=== PATIENT | female | born 1940 | race Caucasian/White ===

== ENCOUNTER 2018-03-20 11:04 | Outpatient (CLI) | payer MEDICARE, BC ==
[2018-03-20] MEDS ORDERED: ISOVUE-370 76%-LOCM 1 ML ONE (12:13)
== END 2018-03-20 11:05 | disposition home or self-care (01) ==
LOC: BICCT 11:04
PROVIDERS: ATTEND Internal Medicine Gastroenterology
DX: K59.00 Constipation, unspecified (principal); K62.89 Other specified diseases of anus and rectum; K57.92 Diverticulitis of intestine, part unspecified, without perforation or abscess without bleeding; K57.30 Diverticulosis of large intestine without perforation or abscess without bleeding
CPT/HCPCS: 74177; 82565

== ENCOUNTER 2018-06-12 14:28 | Emergency (ER) | payer MEDICARE, BC ==
[~2018-06-12 14:28] MED LIST: ISOVUE-370 76%-LOCM 1 ML ONE; Iopamidol 370 76% 50 ML VIAL FS ONE
[2018-06-12 15:40] LABS: #Basophils 0.1 thou/uL (0.0-0.2); #Eosinphils 0.2 thou/uL (0.0-0.7); #Lymphocytes 1.8 thou/uL (1.20-3.40); #Monocytes 0.5 thou/uL (0.11-0.59); #Neutrophils 6.2 thou/uL (1.40-6.50); %Basophils 0.7 % (0.0-1.0); %Eosinophils 1.9 % (0.0-10.0); %Lymphocytes 20.2 % (21.0-51.0); %Monocytes 5.9 % (0.0-10.0); %Neutrophils 71.3 % (42.0-75.0); Hemoglobin 12.5 g/dL (12.0-16.0); Mean Corpuscular HGB CONC 32.5 g/dL (32.0-36.0); Mean Corpuscular Hemoglobin 29.3 pg (27.0-31.0); Mean Corpuscular Volume 90.1 fL (78.0-98.0); Mean Platelet Volume 6.4 fL (7.4-10.4); Platelet Count 367 thou/uL (130-400); RBC Distribution Width 11.4 % (11.5-14.5); Red Blood Cell (RBC) Count 4.25 mill/uL (4.20-5.40); White Blood Cell (WBC) Count 8.7 thou/uL (4.8-10.8)
[2018-06-12 16:00] LABS: ALT (SGPT) 11 U/L (8-55); AST (SGOT) 15 U/L (5-34); Albumin 4.1 g/dL (3.4-4.8); Alkaline Phosphatase 79 U/L (40-150); Anion Gap 12 mmol/L (10-20); BUN (Urea Nitrogen) 6 mg/dL (9.8-20.1); Bilirubin, Total 0.7 mg/dL (0.2-1.2); Calc. Creatinine Clearance 0 mL/min (70-130); Calcium 9.3 mg/dL (7.8-10.44); Carbon Dioxide 31 mmol/L (23-31); Chloride 92 mmol/L (98-107); Estimated GFR-MDRD 71; Globulin 3.2 g/dL (2.4-3.5); Glucose 104 mg/dL (83-110); Lipase 27 U/L (8-78); Potassium 3.7 mmol/L (3.5-5.1); Protein, Total 7.3 g/dL (6.0-8.3); Sodium 131 mmol/L (136-145)
[2018-06-12 16:11] LABS: Bilirubin Negative (Negative); Blood, Urine Negative (Negative); Clarity CLEAR (Clear); Glucose, Urine (Dipstick) Negative (Negative); Leukocyte Negative (Negative); Nitrite Negative (Negative); Protein, Urine (Dipstick) Negative (Neg-Trace); Specific Gravity, Urine 1.008 (1.002-1.036); Urobilinogen 0.2 mg/dL (0.2-1.0)
--- NOTE | 2018-06-12 18:10 | CT ---
CT ABDOMEN AND PELVIS WITH ORAL AND IV CONTRAST: 06/12/18 HISTORY: Abdominal pain. FINDINGS: Comparison is made with exam of 05/06/14. The lung bases are clear. The patient is post cholecystectomy, appendectomy and hysterectomy. The alicja g bases are clear. The liver, spleen, pancreas, and adrenal glands are normal. Small cysts in the ki dneys are again seen. No free air, free fluid or lymphadenopathy is seen in the abdomen or pelvis. Postop changes in the si gmoid colon are redemonstrated. Mild diverticular disease in the sigmoid colon is again seen without evidence of diverticulitis. No abnormally loculated fluid collections are noted to suggest abscess fo rmation. There are vascular calcifications without evidence of aneurysmal dilatation of the abdominal aorta. T here are degenerative changes in the spine. A small hiatal hernia is present. IMPRESSION: Small hiatal hernia. Sigmoid diverticulosis without evidence of diverticulitis or abscess formation. POS: [facility]
== END 2018-06-12 20:06 | disposition home or self-care (01) ==
LOC: ERS 14:28
DX: K57.30 Diverticulosis of large intestine without perforation or abscess without bleeding (principal); E11.9 Type 2 diabetes mellitus without complications; I10 Essential (primary) hypertension
CPT/HCPCS: 74177; 80053; 81003; 83690; 85025

== ENCOUNTER 2018-06-24 14:36 | Emergency (ER) | payer MEDICARE, BC ==
[~2018-06-24 14:36] MED LIST changes: -Iopamidol 370 76% 50 ML VIAL FS ONE
[2018-06-24 15:17] LABS: #Basophils 0.1 thou/uL (0.0-0.2); #Eosinphils 0.2 thou/uL (0.0-0.7); #Lymphocytes 1.8 thou/uL (1.20-3.40); #Monocytes 0.3 thou/uL (0.11-0.59); #Neutrophils 5.1 thou/uL (1.40-6.50); %Basophils 1.2 % (0.0-1.0); %Eosinophils 2.1 % (0.0-10.0); %Monocytes 4.5 % (0.0-10.0); %Neutrophils 68.2 % (42.0-75.0); Hemoglobin 12.6 g/dL (12.0-16.0); Mean Corpuscular HGB CONC 33.9 g/dL (32.0-36.0); Mean Corpuscular Hemoglobin 30.6 pg (27.0-31.0); Mean Corpuscular Volume 90.3 fL (78.0-98.0); Mean Platelet Volume 7.1 fL (7.4-10.4); Platelet Count 382 thou/uL (130-400); RBC Distribution Width 11.6 % (11.5-14.5); Red Blood Cell (RBC) Count 4.12 mill/uL (4.20-5.40); White Blood Cell (WBC) Count 7.5 thou/uL (4.8-10.8)
[2018-06-24 15:40] LABS: ALT (SGPT) 20 U/L (8-55); AST (SGOT) 27 U/L (5-34); Alkaline Phosphatase 69 U/L (40-150); Anion Gap 14 mmol/L (10-20); BUN (Urea Nitrogen) 6 mg/dL (9.8-20.1); Bilirubin, Total 0.6 mg/dL (0.2-1.2); Calc. Creatinine Clearance 0 mL/min (70-130); Calcium 9.6 mg/dL (7.8-10.44); Carbon Dioxide 27 mmol/L (23-31); Chloride 93 mmol/L (98-107); Estimated GFR-MDRD 69; Globulin 3.3 g/dL (2.4-3.5); Glucose 123 mg/dL (83-110); Lipase 28 U/L (8-78); Potassium 4.1 mmol/L (3.5-5.1); Protein, Total 7.3 g/dL (6.0-8.3); Sodium 130 mmol/L (136-145)
[2018-06-24 15:44] LABS: CKMB 1.6 ng/mL (0-6.6); Troponin I Less than 0.010 ng/mL (< 0.028)
[2018-06-24 15:47] LABS: Bilirubin Negative (Negative); Blood, Urine Negative (Negative); Clarity CLEAR (Clear); Glucose, Urine (Dipstick) Negative (Negative); Leukocyte Negative (Negative); Nitrite Negative (Negative); Protein, Urine (Dipstick) Negative (Neg-Trace); Specific Gravity, Urine 1.007 (1.002-1.036); Urobilinogen 0.2 mg/dL (0.2-1.0); pH, Urine 7.5 (5.0-9.0)
--- NOTE | 2018-06-24 16:48 | CT ---
CT ABDOMEN AND PELVIS WITH CONTRAST: Date: 06/24/18 Multiple axial tomograms obtained through the abdomen and pelvis with IV enhancement. INDICATION: Abdominal pain. History of prior diverticulitis with resection. Comparison made to CT abdomen and pelvis dated 06/12/18. That exam revealed no evidence of diverticul itis or acute process. FINDINGS: Lung bases are clear. Liver, spleen, and pancreas are unremarkable. Post cholecystectomy change. Adrenal glands and kidneys are unremarkable. Small bowel loops normal caliber. Aorta normal caliber. Diverticulosis of left colon and sigmoid. Evidence of prior colon resection with anastomosis with rad iopaque suture in the upper sigmoid region. IMPRESSION: Diverticulosis of the left colon. No CT evidence of diverticulitis. No significant interval change. POS: [facility]
== END 2018-06-24 17:31 | disposition home or self-care (01) ==
LOC: ERS 14:36
DX: R10.32 Left lower quadrant pain (principal); R10.12 Left upper quadrant pain; E11.9 Type 2 diabetes mellitus without complications; I10 Essential (primary) hypertension
CPT/HCPCS: 74177; 80053; 81003; 82553; 83690; 84484; 85025; 93005

== ENCOUNTER 2018-08-25 19:34 | Observation (INO) | payer MEDICARE, BC ==
[2018-08-25 19:56] LABS: #Basophils 0.1 thou/uL (0.0-0.2); #Eosinphils 0.1 thou/uL (0.0-0.7); #Lymphocytes 2.6 thou/uL (1.20-3.40); #Monocytes 0.6 thou/uL (0.11-0.59); #Neutrophils 5.2 thou/uL (1.40-6.50); %Basophils 1.2 % (0.0-1.0); %Eosinophils 1.7 % (0.0-10.0); %Lymphocytes 30.3 % (21.0-51.0); %Monocytes 6.4 % (0.0-10.0); %Neutrophils 60.4 % (42.0-75.0); Hemoglobin 12.7 g/dL (12.0-16.0); Mean Corpuscular HGB CONC 33.7 g/dL (32.0-36.0); Mean Corpuscular Hemoglobin 30.6 pg (27.0-31.0); Mean Corpuscular Volume 90.6 fL (78.0-98.0); Mean Platelet Volume 7.1 fL (7.4-10.4); Platelet Count 362 thou/uL (130-400); RBC Distribution Width 11.5 % (11.5-14.5); Red Blood Cell (RBC) Count 4.17 mill/uL (4.20-5.40); White Blood Cell (WBC) Count 8.7 thou/uL (4.8-10.8)
[2018-08-25 20:17] LABS: ALT (SGPT) 12 U/L (8-55); AST (SGOT) 16 U/L (5-34); Albumin 4.1 g/dL (3.4-4.8); Alkaline Phosphatase 83 U/L (40-150); Anion Gap 13 mmol/L (10-20); BUN (Urea Nitrogen) 9 mg/dL (9.8-20.1); Bilirubin, Total 0.6 mg/dL (0.2-1.2); CK (CPK) 60 U/L (29-168); Calc. Creatinine Clearance 0 mL/min (70-130); Calcium 9.6 mg/dL (7.8-10.44); Carbon Dioxide 28 mmol/L (23-31); Chloride 94 mmol/L (98-107); Estimated GFR-MDRD 60; Globulin 3.3 g/dL (2.4-3.5); Glucose 173 mg/dL (83-110); Potassium 3.3 mmol/L (3.5-5.1); Protein, Total 7.4 g/dL (6.0-8.3); Sodium 132 mmol/L (136-145)
--- NOTE | 2018-08-25 21:15 | RAD ---
UPRIGHT PORTABLE CHEST ONE VIEW: 08/25/18 HISTORY: 78-year-old female with history of chest pain. Concern for stroke. Monitor leads overlie the chest. Heart size is normal. The lungs are clear. IMPRESSION: No acute intrathoracic disease. Atherosclerosis of the aorta. Stable from prior study. POS: [facility]
--- NOTE | 2018-08-26 00:28 | PDOC.FPRHP ---
- History of Present Illness Chief Complaint: headache History of Present Illness: Mrs. Sanchez presents to the ED with visual disturbances and word finding difficulty She reports at around 1800 this evening she began having what she describes as pinwheels in her vision and shortly following difficulty finding the words to say. These symptoms resolved after approximately 30 mins. She denies any focal weakness, syncope, palpitations, fever/chills, change in bowel habits, or chest pain. She has a headache on and off for approximately 3 months. she reports urinary incontinence since her abdominal surgery for diverticulitis. ED Course: mag + K CT brain, CBC, CMP, trop, CK, CXR - Allergies/Adverse Reactions Allergies Allergy/AdvReac Type Severity Reaction Status Date / Time No Known Drug Allergies Allergy Verified 05/27/14 23:08 tobacco smoke Allergy Uncoded 05/24/14 12:10 - Home Medications Medication Instructions Recorded Confirmed Type Aspirin [Chrissy Chewable Aspirin] 1 tab PO DAILY 04/10/14 05/24/14 History Calcium Carb, Citrate/Vit D3 1,200 mg PO DAILY 04/10/14 05/24/14 History [Calcium + D3 ER Tablet] Desvenlafaxine Succinate [Pristiq 50 mg PO ASDIR 04/10/14 05/24/14 History ER] Docusate [Colace] 100 mg PO BID 04/10/14 05/24/14 History Ginkgo Biloba 120 mg PO DAILY 04/10/14 05/24/14 History Gluc Castellon/Chondro Castellon A/Vit C/Mn 2 cap PO DAILY 04/10/14 05/24/14 History [Glucosamine 1,500 Complex Capsule] Multivitamin With Minerals 1 tablet PO DAILY 04/10/14 05/24/14 History [Multiple Vitamin] Valsartan/Hydrochlorothiazide 0.5 tablet PO DAILY 04/10/14 05/24/14 History [Diovan HCT] metFORMIN HCl [Metformin HCl ER] 2 tab PO BID-WM 04/10/14 05/24/14 History Levothyroxine Sodium 120 mg PO DAILY 05/24/14 05/24/14 History Doxycycline Hyclate 100 mg PO BID 05/30/14 05/30/14 History HYDROcodone Bit/APAP 7.5/325 1 - 2 tab PO Q4HR PRN 05/30/14 05/30/14 History [[place] 7.5/325] - History PMHx:DMII, HLD, HTN PSHx: abdominal sgx 2/2 hernia/diverticulosis FHx: NC Social: No TAD - Review of Systems General: denies: fever/chills, weight/appetite/sleep changes Eyes: reports: eye pain, vision changes ENT: denies: nasal congestion Respiratory: denies: cough, shortness of breath Cardiovascular: denies: chest pain, palpitation, edema Gastrointestinal: reports: constipation. denies: nausea, vomiting, diarrhea, abdominal pain Genitourinary: reports: incontinence Skin: denies: rashes, lesions Musculoskeletal: denies: pain, tenderness Neurological: denies: numbness, syncope Psychological: reports: depression - Vital signs BP: 143/76 HR: 70 RR: 16 Tmax: 97.5 Pox: 98% on RA Wt: 79.38kg - Physical Exam Constitutional: NAD, awake, alert and oriented HEENT: normocephalic and atraumatic, EOMI, grossly normal vision, grossly normal hearing, MMM Neck: supple, trachea midline Chest: no-tender to palpation Heart: RRR, normal S1/S2, no murmurs/rubs/gallops Lungs: CTAB, no respiratory distress, good air movement Abdomen: soft, non-tender Musculoskeletal: normal structure, normal tone Neurological: no focal deficit, CN II-XII intact, normal sensation Skin: no rash/lesions Heme/Lymphatic: no unusual bruising or bleeding, no purpura Psychiatric: normal mood and affect FMR H&P: Results - Labs Result Diagrams: 08/25/18 19:47 08/25/18 19:47 Lab results: WBC 8.7 thou/uL (4.8-10.8) 08/25/18 19:47 Hgb 12.7 g/dL (12.0-16.0) 08/25/18 19:47 Hct 37.8 % (36.0-47.0) 08/25/18 19:47 MCV 90.6 fL (78.0-98.0) 08/25/18 19:47 Plt Count 362 thou/uL (130-400) 08/25/18 19:47 Neutrophils % 60.4 % (42.0-75.0) 08/25/18 19:47 Sodium 132 mmol/L (136-145) L 08/25/18 19:47 Potassium 3.3 mmol/L (3.5-5.1) L 08/25/18 19:47 Chloride 94 mmol/L (98-107) L 08/25/18 19:47 Carbon Dioxide 28 mmol/L (23-31) 08/25/18 19:47 BUN 9 mg/dL (9.8-20.1) L 08/25/18 19:47 Creatinine 0.90 mg/dL (0.6-1.1) 08/25/18 19:47 Glucose 173 mg/dL (83-110) H 08/25/18 19:47 Calcium 9.6 mg/dL (7.8-10.44) 08/25/18 19:47 Total Bilirubin 0.6 mg/dL (0.2-1.2) 08/25/18 19:47 AST 16 U/L (5-34) 08/25/18 19:47 ALT 12 U/L (8-55) 08/25/18 19:47 Alkaline Phosphatase 83 U/L (40-150) 08/25/18 19:47 Creatine Kinase 60 U/L (29-168) 08/25/18 19:47 Serum Total Protein 7.4 g/dL (6.0-8.3) 08/25/18 19:47 Albumin 4.1 g/dL (3.4-4.8) 08/25/18 19:47 FMR H&P: A/P - Problem List (1) TIA (transient ischemic attack) Current Visit: Yes Status: Acute Code(s): G45.9 - TRANSIENT CEREBRAL ISCHEMIC ATTACK, UNSPECIFIED (2) DMII (diabetes mellitus, type 2) Current Visit: Yes Status: Acute (3) HTN (hypertension) Current Visit: Yes Status: Acute Code(s): I10 - ESSENTIAL (PRIMARY) HYPERTENSION (4) HLD (hyperlipidemia) Current Visit: Yes Status: Acute Code(s): E78.5 - HYPERLIPIDEMIA, UNSPECIFIED - Plan TIA - symptoms resolved, CT head negative - EKG wnl, MRI and echo ordered - admit to stroke, [facility] per routine - vital signs q4hr - begin asa 81mg - temporal tenderness, ESR pending HTN - permissive HTN - hold home medications DMII - continue home meds - Mild SSI HLD - continue home meds Hypokalemia - repleted in ED - repeat CMP in AM Hypomagnesemia - repleted in ED - repeat CMP in AM Code: full ppx: rachealx Disposition/LOS: admit to stroke for TIA work up FMR H&P: Upper Level - Pertinent history I agree with Shake Cutter's History. Aphasia, vision changes resolved and lasted for 45 mins. Has been having R temporal pain for several weeks and takes ibuprofen. Also states she is incontinent from surgical complication after her sigmoidectomy. - Pertinent findings NEG CT brain. Of note, Urgent HTN range upon presentation to ED. Neurology exam. CN intact, no focal deficits. strength and sensation preserved throughout - Plan Date/Time: 08/26/18 0027 I, Earle Nicholson, have evaluated this patient and agree with findings/plan as outlined by internet security specialist resident. Pertinent changes/additions are listed here. 1. TIA r/o - CT negative. MRI/ECHO tomorrow. Consider CTA carotids also. Episode possibly 2/2 TIA vs Hypertensive Encephalopathy. Will start ASA, already on statin. 2. HTN - Has improved to normal range. Continue to monitor 3. HLD - continue statin 4. Diverticulitis s/p sigmoidectomy 5. Urinary Incontinence 6. Hypokalemia/magnesemia - will replete and recheck 7. Hyponatramia - Will replete with NS and recheck.
[2018-08-26] MEDS ORDERED: Potassium Chloride 40 MEQ in Sodium Chloride 0.9% 250 ML 250 ML IVPB SCH (01:30)
[2018-08-26] MEDS ORDERED: HumaLOG 300 UNITS/3 ML VIAL SC PRN ×2 (01:53)
[2018-08-26] MEDS ORDERED: Acetaminophen 325 MG TAB PO PRN (01:53)
[2018-08-26] MEDS ORDERED: Dextrose 5% in Water 1,000 ML IV PRN (01:53)
[2018-08-26] MEDS ORDERED: hydrALAZINE 20 MG/ML VIAL SLOW IVP PRN (01:53)
[2018-08-26] MEDS ORDERED: Dextrose 50% Abboject 50 ML SYRINGE SLOW IVP PRN (01:53)
[2018-08-26] MEDS ORDERED: Aspirin 81 mg Enteric Coated Tablet PO SCH (02:00)
[2018-08-26 03:41] VITALS: BMI 27.1
[2018-08-26 06:21] LABS: ALT (SGPT) 8 U/L (8-55); AST (SGOT) 14 U/L (5-34); Albumin 3.5 g/dL (3.4-4.8); Alkaline Phosphatase 69 U/L (40-150); Anion Gap 10 mmol/L (10-20); BUN (Urea Nitrogen) 8 mg/dL (9.8-20.1); Bilirubin, Total 0.7 mg/dL (0.2-1.2); Calc. Creatinine Clearance 77 mL/min (70-130); Calcium 9.1 mg/dL (7.8-10.44); Carbon Dioxide 29 mmol/L (23-31); Chloride 98 mmol/L (98-107); Estimated GFR-MDRD 78; Globulin 2.9 g/dL (2.4-3.5); Glucose 105 mg/dL (83-110); Protein, Total 6.4 g/dL (6.0-8.3); Sodium 133 mmol/L (136-145)
--- NOTE | 2018-08-26 08:37 | CT ---
PRELIMINARY REPORT/[facility]/EMERGENTY AFTER-HOURS PROCEDURE CT Head Without Contrast EXAM DATE/TIME: 08/26/2018 12:10 AM CLINICAL HISTORY: 78 years old, female; Pain; Headache; Headache not specified; Patient HX: 1 y/o f presents to ed C/O XIONG and vision changes. PT states that she had been working and just sat down when she noticed she was seeing "pinwheels" that began to worsen such that she was unable to see her crossword puzzle well. A ssociated with a unilateral XIONG behind her eye. XIONG worsened as vision worsened. She then went into the kitchen and sat near her . At that time, she was unable to se e anything and was not able to answer her 's questions. She states no loss of strength, sensat ion, or coordination in her extremities. She has had similar XIONG and vision changes in the past. Howev er she notes that the duration is normally much shorter than today and that she has never had difficu lty speaking previously. TECHNIQUE: Axial computed tomography images of the head/brain without contrast. COMPARISON: No relevant prior studies available. FINDINGS: Brain: There is minimal bilateral periventricular and subcortical white matter hypodensity which is n onspecific and can be seen in the setting of chronic microvascular angiopathy. Nuno-white matter diff erentiation is within normal limits. No hemorrhage. Ventricles: No ventriculomegaly. Bones/joints: No acute fracture. Sinuses: Well aerated. Mastoid air cells: Well aerated. Soft tissues: Unremarkable. Vasculature: There is atherosclerotic disease of the internal carotid and vertebral arteries bilatera lly. IMPRESSION: 1. No acute hemorrhage, focal mass or large territory infarction. 2. Other findings as above. Thank you for allowing us to participate in the care of your patient. Dictated and Authenticated by: Guillaume Jansen MD 08/26/2018 12:32 AM Central Time ([place] & [place]) FINAL REPORT HEAD CT WITHOUT CONTRAST: DATE: 08/26/2018. COMPARISON: None. HISTORY: Vision changes, headaches. FINDINGS: I agree with the preliminary [facility] report. The imaged paranasal sinuses/mastoid air cells are well aerated. No displaced calvarial fracture. No intracranial hemorrhage, midline shift, or mass effect. IMPRESSION: No acute findings. POS: [facility]
[2018-08-26] MEDS ORDERED: Enoxaparin Sodium 40 MG/0.4 ML SYRINGE SC SCH (09:00)
--- NOTE | 2018-08-26 10:10 | PRG ---
DATE OF SERVICE: 08/26/2018 SUBJECTIVE: I have discussed the case with Dr. Tony Becker, and I have reviewed his history and physical. I agree with his assessment and plan. Briefly, Ms. Sanchez is a very pleasant 78-year-old white female, looking younger than her stated age. Yesterday, while wrapping cookie, she had approximately a 30-minute episode of word-finding difficulty that was preceded by "spots before my eyes." She, at all times, was alert, oriented, and could move all extremities. She did not experience headache or chest pain. She did not experience syncope or palpitations. By the time she arrived at the ER, her symptoms had largely resolved. This morning, Ms. Sanchez is awake, alert, in no distress. She demonstrates no focal deficits. OBJECTIVE: VITAL SIGNS: Her blood pressure is 144/63. She is afebrile. Her pulse rate is 66, respirations are 16, and her room air oxygen saturation is 95. EAR, NOSE, AND THROAT: No signs of erythema or exudate. NECK: Supple. CARDIAC: Heart rhythm is regular with no gallop or murmur noted. LUNGS: Clear without rales or wheezes. No distress. ABDOMEN: Flat and soft. No guarding, rebound, or rigidity. EXTREMITIES: No edema. NEUROLOGIC: She demonstrates no focal deficits. She moves all extremities well. She has no problems with her balance. LABORATORY DATA: CBC; white count is 8700, hemoglobin 12.7, hematocrit 37.8 with an MCV of 90.6. Her sedimentation rate is 19. Initial chemistry; sodium 132, potassium 3.3, chloride 94, bicarbonate 28, BUN 9, creatinine 0.9, glucose 173. GFR 60, repeat was 80. Brain CT shows no acute hemorrhage or other acute changes. ASSESSMENT: 1. Transient ischemic attack. 2. Type 2 diabetes. 3. Hypertension. DISPOSITION: The patient has already had a brain CT. I would suggest a CTA for better look at the vasculature as well as an MRI and echo. Job ID: [id number]
--- NOTE | 2018-08-26 10:31 | MRI ---
MRI BRAIN WITHOUT CONTRAST: HISTORY: Transient ischemic attack, vision changes. COMPARISON: CT brain same day. FINDINGS: On the diffusion weighted imaging sequence, there are no abnormal areas of diffusion restriction to i ndicate an acute infarction. This is confirmed on the ADC map. On the susceptibility weighted imaging sequence, here are no abnormal areas of hemorrhage. The flow voids of the [place] are maintained. Minimal microvascular ischemic changes. No h ydrocephalus. No midline shift or mass effect. The globes are normal. IMPRESSION: No acute intracranial abnormality. No acute hemorrhage or infarct. POS: [facility]
[2018-08-26] MEDS ORDERED: Iopamidol 370 76% 100 ML VIAL ONE (10:43)
--- NOTE | 2018-08-26 14:00 | CT ---
CT ANGIOGRAM OF THE HEAD WITH CONTRAST CT ANGIOGRAM OF THE NECK WITH CONTRAST: HISTORY: Transient ischemic attack. COMPARISON: Brain MRI same day. FINDINGS: The lung apices are clear. Transverse aorta is nonaneurysmal. There is moderate degenerative change of the lower cervical spine at C5-6 and C6-7. No cervical ralf opathy. Thyroid is unremarkable. Paraspinal musculature is normal. VESSELS: Vertebral arteries are tortuous indicating longstanding hypertension. Right vertebral artery is jimbo nant. Both vertebral arteries are patent. The common carotid artery origins are patent. No hemodyn amically significant stenosis using NASCET criteria of the internal carotid arteries. The basilar artery is patent. The [place] is patent. No aneurysmal formation, thrombosis, or stenosis. There are prominent bilateral origins of the ophthalmic arteries and much less bilatera l symmetric terminal ICA aneurysms. No abnormal intensity mass. IMPRESSION: 1. No hemodynamically significant stenosis of internal carotid arteries per NASCET criteria. 2. No significant intracranial [place] thrombosis, stenosis, nor aneurysm formation. POS: [facility]
[2018-08-26 15:44] VITALS: BP 147/67; TEMP 97.5
[2018-08-27] MEDS ORDERED: Aspirin 81 mg Enteric Coated Tablet PO SCH (09:00)
--- NOTE | 2018-08-28 07:47 | DIS ---
DATE OF ADMISSION: 08/26/2018 DATE OF DISCHARGE: 08/26/2018 ADMITTING ATTENDING: Sander Steven MD DISCHARGE ATTENDING: Sander Steven MD RESIDENT: Dwayne Bianchi DO CONSULTS: None. PROCEDURES: 1. Head CT without contrast shows no acute intracranial findings including hemorrhage, midline shift or mass effect. 2. Portable chest x-ray showing no acute intrathoracic disease, atherosclerosis of aorta, stable from previous study. 3. MRI of the brain shows no acute intracranial abnormality, no hemorrhage or infarct. 4. CT angiogram of the head and neck shows no abnormal intense mass, no hemodynamically significant stenosis of the internal carotid arteries, no significant [QAMARKER] thrombosis, stenosis or aneurysm formation. PRIMARY DIAGNOSIS: Transient ischemic attack. SECONDARY DIAGNOSES: 1. Type 2 diabetes. 2. Hyperlipidemia. 3. Hypertension. DISCHARGE MEDICATIONS: 1. Alendronate 5 mg p.o. daily. 2. Aspirin 81 mg p.o. daily. 3. Calcium carbonate 1200 mg p.o. daily. 4. Pristiq 50 mg as directed. 5. Glucosamine 2 capsules p.o. daily. 6. Levothyroxine 75 mcg p.o. daily. 7. Metformin 1000 mg p.o. b.i.d. 8. Multivitamin 1 tablet p.o. b.i.d. 9. Pravastatin 40 mg p.o. at bedtime. 10. Diovan 80/12.5 half a tablet p.o. daily. DISCONTINUED MEDICATIONS: None. BRIEF HISTORY OF PRESENT ILLNESS/HOSPITAL COURSE: This is an 78-year-old female with past medical history as above, who presented to the ER with seeing pinwheels and word finding difficulty. States that she has been seeing pinwheels in the past, but this is the first time she has had trouble finding the words. The patient was admitted for stroke to rule out and underwent the above studies. The patient was finally stable during her stay. Workup for stroke was negative. DISPOSITION: Stable. DISCHARGE INSTRUCTIONS: 1. Location: Home. 2. Diet: Diabetic. 3. Activity: As tolerated. 4. Followup: Follow up with PCP in 1 to 2 weeks and in 14 days. Job ID: [id number]
== END 2018-08-26 16:48 | disposition home or self-care (01) ==
LOC: ERS 19:34 → 2SW 08-26 00:25
PROVIDERS: ADMIT Student in an Organized Health Care Education/Training Program; ATTEND Student in an Organized Health Care Education/Training Program
DX: G45.9 Transient cerebral ischemic attack, unspecified (principal); I10 Essential (primary) hypertension; E78.5 Hyperlipidemia, unspecified; E11.9 Type 2 diabetes mellitus without complications; Z79.82 Long term (current) use of aspirin; Z79.84 Long term (current) use of oral hypoglycemic drugs; Z98.890 Other specified postprocedural states; Z79.899 Other long term (current) drug therapy
CPT/HCPCS: 70450; 70496; 70498; 70551; 71045; 80053 ×2; 82550; 82962 ×2; 84484; 85025; 85652; 93005; 93306; 96365; 96366; 96374; 96375; 99285; G0378 ×2; 36415; 36416; J1650; J3475; J3480; J7050

== ENCOUNTER 2019-04-14 11:47 | Inpatient (IN) | payer MEDICARE, BC ==
--- NOTE | 2019-04-14 12:25 | RAD ---
RADIOGRAPH CHEST 1 VIEW: DATE: 04/14/19 HISTORY: 78-year-old female with chest pain. FINDINGS: The thoracic aorta is tortuous and ectatic. There is no evidence of air space density, pneumothorax, or pulmonary edema. The lateral costophrenic angles are sharp. There is no cardiomegaly. No interva l change since 08/25/18. IMPRESSION: 1. No acute pulmonary findings. 2. Ectasia of thoracic aorta. chris [] POS: [facility]
[2019-04-14 12:26] LABS: #Basophils 0.1 thou/uL (0.0-0.2); #Eosinphils 0.2 thou/uL (0.0-0.7); #Monocytes 0.3 thou/uL (0.11-0.59); #Neutrophils 5.3 thou/uL (1.40-6.50); %Basophils 1.1 % (0.0-1.0); %Lymphocytes 25.2 % (21.0-51.0); %Monocytes 4.3 % (0.0-10.0); %Neutrophils 67.4 % (42.0-75.0); Hemoglobin 12.1 g/dL (12.0-16.0); Mean Corpuscular HGB CONC 33.8 g/dL (32.0-36.0); Mean Corpuscular Hemoglobin 29.3 pg (27.0-31.0); Mean Corpuscular Volume 86.8 fL (78.0-98.0); Mean Platelet Volume 7.4 fL (7.4-10.4); Platelet Count 337 thou/uL (130-400); RBC Distribution Width 11.6 % (11.5-14.5); Red Blood Cell (RBC) Count 4.14 mill/uL (4.20-5.40); White Blood Cell (WBC) Count 7.9 thou/uL (4.8-10.8)
[2019-04-14 12:54] LABS: ALT (SGPT) 8 U/L (8-55); AST (SGOT) 15 U/L (5-34); Alkaline Phosphatase 92 U/L (40-150); Anion Gap 16 mmol/L (10-20); BUN (Urea Nitrogen) 8 mg/dL (9.8-20.1); Bilirubin, Total 0.6 mg/dL (0.2-1.2); Calc. Creatinine Clearance 0 mL/min (70-130); Calcium 9.6 mg/dL (7.8-10.44); Carbon Dioxide 23 mmol/L (23-31); Chloride 94 mmol/L (98-107); Estimated GFR-MDRD 64; Globulin 2.8 g/dL (2.4-3.5); Glucose 170 mg/dL (83-110); Protein, Total 6.8 g/dL (6.0-8.3); Sodium 129 mmol/L (136-145)
--- NOTE | 2019-04-14 13:30 | CT ---
CT ABDOMEN AND PELVIS WITH IV CONTRAST: HISTORY: Abdominal pain COMPARISON: 06/24/2018 FINDINGS: There are changes of hysterectomy and cholecystectomy appendectomy and colonic surgery. The lung base s are clear. The liver, spleen, pancreas and adrenal glands are normal. Small cysts in the kidney are again seen. No free air, free fluid or lymphadenopathy is noted in the abdomen or pelvis. The small bowel loops are not abnormally dilated. There is colonic diverticulosis without diverticulitis. There are vascular calcifications without evidence of aneurysmal dilatation of the abdominal aorta. T here are degenerative changes in the spine. No abnormally loculated fluid collection is noted to suggest abscess formation. IMPRESSION: Colonic Diverticulosis without evidence of radiculitis.
[2019-04-14 17:02] LABS: Bilirubin Negative (Negative); Blood, Urine Negative (Negative); Clarity Clear (Clear); Glucose, Urine (Dipstick) Normal (Negative); Leukocyte Negative Leu/uL (Negative); Nitrite Negative (Negative); Protein, Urine (Dipstick) Negative (Neg-Trace); Urobilinogen Normal mg/dL (Less than 2)
[2019-04-14 17:15] LABS: Lactic Acid 1.1 mmol/L (0.5-2.2)
--- NOTE | 2019-04-14 17:16 | PDOC.FPRHP ---
- History of Present Illness Chief Complaint: Abdominal/Chest pain History of Present Illness: 78 yo Caucasion F comes in with 1 day hx of abdominal/chest pain. Pt reports having a few episodes yesterday of pain that would start in her lower abdomen and then progress up to her chest. Episodes would last for 10 minutes. Reports feeling hot during this. Reports getting SOB. Reports pain as crampy. Pt reports having chills. Denies fever. Pt reports working in the garden prior to this. Pt has extensive abdominal surgical history. She also has a history of diverticulosis. Pt reports 1 episode of vomiting when she presented to the ER. Denies any n/d/c. Pt denies any headaches. Reports seeing pinwheels in her vision. She denies any leg swelling. - Allergies/Adverse Reactions Allergies Allergy/AdvReac Type Severity Reaction Status Date / Time No Known Allergies Allergy Verified 04/14/19 21:30 - Home Medications Medication Instructions Recorded Confirmed Type Calcium Carb, Citrate/Vit D3 1,200 mg PO DAILY 04/10/14 08/26/18 History [Calcium + D3 ER Tablet] Desvenlafaxine Succinate [Pristiq] 50 mg PO ASDIR 04/10/14 08/26/18 History Gluc Castellon/Chondro Castellon A/Vit C/Mn 2 cap PO DAILY 04/10/14 08/26/18 History [Glucosamine 1,500 Complex Capsule] Multivitamin With Minerals 1 tablet PO DAILY 04/10/14 08/26/18 History [Multiple Vitamin] Valsartan/Hydrochlorothiazide 0.5 tablet PO DAILY 04/10/14 08/26/18 History [Diovan HCT] metFORMIN HCl [metFORMIN HCl ER] 2 tab PO BID-WM 04/10/14 04/14/19 History Levothyroxine Sodium 50 mcg PO DAILY 05/24/14 04/14/19 History Alendronate Sodium 5 mg PO DAILY 08/26/18 08/26/18 History Aspirin [Ecotrin Low Strength] 81 mg PO DAILY tab 08/26/18 Rx Pravastatin Sodium 40 mg PO HS 08/26/18 08/26/18 History Valsartan/Hydrochlorothiazide 0.5 each PO DAILY #30 tablet 08/26/18 Rx [Valsartan-Hctz 80-12.5 mg Tab] Alendronate Sodium 5 mg PO 04/14/19 History Atorvastatin Calcium [Lipitor] 40 mg PO DAILY 04/14/19 04/14/19 History Desvenlafaxine [Khedezla] 04/14/19 History Propranolol [Inderal] 1 tab PO BID 04/14/19 04/14/19 History Comments: The above is not the updated medlist. Her updated meds based on the list she brought in are typed below: Metformin 500mg BID Desvenlafaxine 50 mg daily Levothyroxine 50 mcg daily Propranolol 40 mg daily Atorvastatin 40 mg daily Alendronate 5 mg tab daily. - History PMHx: DMII, Depression, HTN, Hypothyroidism, HLD, Diverticulosis PSHx: Tubal Ligation (1974), Hyterectomy and Appendectomy (1979), Heart Cath( ), Ear Surgery for Cyst (), Cholecystectomy, Cystocele and Rectocele correction (2008), Knee replacement (2003), Lens Implant (2003,2011), Rupture colon w/ Resection w/ rectocele and cystocele again corrected (2015) FHx: Noncontributory Social: Second hand smoke from , Denies alcohol or illicit drug use. - Review of Systems General: reports: fever/chills. denies: weight/appetite/sleep changes, night sweats, fatigue Eyes: reports: vision changes (pinwheels). denies: eye pain ENT: denies: nasal congestion, rhinorrhea Respiratory: reports: shortness of breath. denies: cough, congestion, exercise intolerance Cardiovascular: reports: chest pain. denies: palpitation, edema, orthopnea Gastrointestinal: reports: vomiting, abdominal pain. denies: nausea, diarrhea, constipation, GI bleeding Genitourinary: denies: incontinence, dysuria, polyuria Skin: denies: rashes, lesions, itching Musculoskeletal: denies: pain, swelling, arthritis/arthralgias Neurological: denies: numbness, syncope, seizure Psychological: reports: depression. denies: anxiety - Vital signs BP: [138/83] HR: [63] RR: [28] Tmax: [97.8] Pox: [100]% on [2L] - Physical Exam Constitutional: NAD, awake, alert and oriented, well developed HEENT: normocephalic and atraumatic, grossly normal vision, grossly normal hearing, normal nasal mucosa Neck: supple, no LAD, no JVD Heart: RRR, normal S1/S2, no murmurs/rubs/gallops, pulses present Lungs: CTAB, no respiratory distress, good air movement, no rales/rhonchi, no wheezing Abdomen: soft, bowel sounds present, no masses/distention -Abdomen: Pt TTP in LLQ. Pt had rebound when pressing in LQ Musculoskeletal: normal structure Neurological: no focal deficit, normal sensation Skin: no rash/lesions, capillary refill <2 seconds Heme/Lymphatic: no unusual bruising or bleeding, no purpura Psychiatric: normal mood and affect, good judgment and insight, intact recent and remote memory FMR H&P: Results - Labs Result Diagrams: 04/15/19 06:20 04/15/19 06:19 Lab results: WBC 7.9 thou/uL (4.8-10.8) 04/14/19 12:11 Hgb 12.1 g/dL (12.0-16.0) 04/14/19 12:11 Hct 35.9 % (36.0-47.0) L 04/14/19 12:11 MCV 86.8 fL (78.0-98.0) 04/14/19 12:11 Plt Count 337 thou/uL (130-400) 04/14/19 12:11 Neutrophils % 67.4 % (42.0-75.0) 04/14/19 12:11 Sodium 129 mmol/L (136-145) L 04/14/19 12:11 Potassium 4.0 mmol/L (3.5-5.1) 04/14/19 12:11 Chloride 94 mmol/L (98-107) L 04/14/19 12:11 Carbon Dioxide 23 mmol/L (23-31) 04/14/19 12:11 BUN 8 mg/dL (9.8-20.1) L 04/14/19 12:11 Creatinine 0.85 mg/dL (0.6-1.1) 04/14/19 12:11 Glucose 170 mg/dL (83-110) H 04/14/19 12:11 Lactic Acid 3.0 mmol/L (0.5-2.2) H 04/14/19 13:01 Calcium 9.6 mg/dL (7.8-10.44) 04/14/19 12:11 Total Bilirubin 0.6 mg/dL (0.2-1.2) 04/14/19 12:11 AST 15 U/L (5-34) 04/14/19 12:11 ALT 8 U/L (8-55) 04/14/19 12:11 Alkaline Phosphatase 92 U/L (40-150) 04/14/19 12:11 Serum Total Protein 6.8 g/dL (6.0-8.3) 04/14/19 12:11 Albumin 4.0 g/dL (3.4-4.8) 04/14/19 12:11 Urine Ketones Negative mg/dL (Negative) 04/14/19 16:46 Urine Blood Negative (Negative) 04/14/19 16:46 Urine Nitrite Negative (Negative) 04/14/19 16:46 Ur Leukocyte Esterase Negative Lobito/uL (Negative) 04/14/19 16:46 - EKG Interpretation EKG: Sinus Rhythm w/ 1st Degree AV block, No acute changes - Radiology Interpretation Chest x-ray Status: image reviewed by me, report reviewed by me (No acute cardiopulm findings. Ectasia of the aorta) CT scan - abdomen Status: image reviewed by me, report reviewed by me (Chronic Diverticulosis w/o evidence of radiculitis) FMR H&P: A/P - Problem List (1) Abdominal pain Current Visit: No Status: Acute Code(s): R10.9 - UNSPECIFIED ABDOMINAL PAIN Qualifiers: Abdominal location: lower abdomen, unspecified Qualified Code(s): R10.30 - Lower abdominal pain, unspecified (2) Atypical chest pain Current Visit: Yes Status: Acute Code(s): R07.89 - OTHER CHEST PAIN (3) DMII (diabetes mellitus, type 2) Current Visit: No Status: Chronic Qualifiers: Diabetes mellitus skilled nursing insulin use: without watcher automat long goods use (4) Diverticulitis Current Visit: No Status: Suspected Code(s): K57.92 - DVTRCLI OF INTEST, PART UNSP, W/O PERF OR ABSCESS W/O BLEED Qualifiers: Diverticulitis site: large intestine (5) HLD (hyperlipidemia) Current Visit: No Status: Chronic Code(s): E78.5 - HYPERLIPIDEMIA, UNSPECIFIED (6) HTN (hypertension) Current Visit: No Status: Chronic Code(s): I10 - ESSENTIAL (PRIMARY) HYPERTENSION Qualifiers: Hypertension type: essential hypertension Qualified Code(s): I10 - Essential (primary) hypertension - Plan Abdominal Pain 2/2 suspected Diverticulitis -Urinalysis has yet to be collected. Will await results. Straight cath U/A negative. -CT negative for diverticulitis but lactic acid elevated and pt having pain on phys exam in LLQ. Possible source. Will trend lactic acid. Repeat AM CBC. -Zosyn abx started for coverage. Atypical Chest Pain -Will trend trops x3. Pain in abdomen could be atypical chest pain. -Admit to Tele for monitoring -Will get stress test in AM -On statin and ASA -Nitro PRN for pain -Will hold BB for stress tmrw DMII -Mild SSI, accuchecks ACHS -Holding metformin seeing if causing GI side effects HTN -Will hold propranolol overnight for stress in AM HLD -continue home med Depression -continue home med Hypothyroidism -continue home med DVT ppx- Lovenox GERD ppx- Tums Addendum - Attending - Attending Attestation Date/Time: 04/15/19 0917 I personally evaluated the patient and discussed the management with Dr. Diaz on 04/14/2019 I agree with the History, Examination, Assessment and Plan documented above with any addition or exceptions noted below - 78 yo female with h/o DM, HTN, HLD , depression, hypothyroidism, diverticulosis presents with episode of abdominal pain that started in lower abdomen and radiated up to chest. Described as a burning, cramping. Episode would last about 10 minutes and then recur. Has never had similar pain. Did have episode of vomiting associated with the pain and also weakness and SOB. denies any diaphoresis. Denies any fever/chills, diarrhea. H/o constipation and regularly uses laxatives, stool softeners. no ill contacts. PMH/PSH/All/Meds reviewed and agree with resident's documentation. T97.9 P70 RR16 BP140/75 Exam repeated by me and agree with resident's findings. Labs: H/H=12.1/35.9, WBC=7.9, Bk=425, K=4.0, BUN.Cr=8/0.85 , Ztwm=408, trop I<0.010, CXR- no acute disease, EKG- 1degree AV block, no ST changes, CT Abd/pelvis- colonic diverticulosis; no evidence of diverticulitis. A /P: 1) Abdominal pain ?ACS equivalent in female patietn with DM- will trend cardiac enzymes and plan for stress test in AM, 2) Diverticulosis- no evidence of diverticulitis; continue to monitor, 3) HTN- cont home meds. 4) Hyponatremia - will monitor; currently asymptomatic. 5) Lactic acidosis- will continue IVF and recheck
[2019-04-14] MEDS ORDERED: Ondansetron ODT 4 MG TAB PO PRN (18:50)
[2019-04-14] MEDS ORDERED: Dextrose 50% Abboject 50 ML SYRINGE SLOW IVP PRN (18:50)
[2019-04-14] MEDS ORDERED: Acetaminophen 650 MG Suppository PR PRN (18:50)
[2019-04-14] MEDS ORDERED: Calcium Carbonate 500 MG ChewTAB PO PRN (18:50)
[2019-04-14] MEDS ORDERED: Ondansetron PF 4 MG/2 ML Vial IVP PRN (18:50)
[2019-04-14] MEDS ORDERED: Nitroglycerin 0.4 MG TAB (25 Tab Bottle) SL PRN (18:50)
[2019-04-14] MEDS ORDERED: Dextrose 5% in Water 1,000 ML IV PRN (18:50)
[2019-04-14] MEDS ORDERED: Acetaminophen 325 MG TAB PO PRN (18:50)
[2019-04-14] MEDS ORDERED: HumaLOG 300 UNITS/3 ML VIAL SC PRN (18:50)
[2019-04-14] MEDS ORDERED: Enoxaparin Sodium 40 MG/0.4 ML SYRINGE SC SCH (19:15)
[2019-04-14] MEDS ORDERED: Atorvastatin Calcium 10 MG TAB PO SCH (21:00)
[2019-04-14] MEDS: Piperacillin/Tazobactam 3.375 GM in Sodium Chloride 0.9% 100 ML IVPB SCH (22:01)
[2019-04-14] MEDS: Lactated Ringer's 1,000 ML IV SCH (22:02)
[2019-04-14 22:18] LABS: Troponin I Less than 0.010 ng/mL (< 0.028)
[2019-04-14 22:21] VITALS: BMI 26.2
[2019-04-15] MEDS: Piperacillin/Tazobactam 3.375 GM in Sodium Chloride 0.9% 100 ML IVPB SCH ×2 (02:55→09:52)
[2019-04-15] MEDS: Lactated Ringer's 1,000 ML IV SCH ×2 (05:49→12:09)
[2019-04-15] MEDS ORDERED: Levothyroxine Sodium 50 MCG TAB PO SCH (06:00)
[2019-04-15] MEDS ORDERED: Levothyroxine Sodium 75 MCG TAB PO SCH (06:00)
--- NOTE | 2019-04-15 06:24 | PDOC.FM ---
- Subjective Subjective: Pt is doing well this morning, states her pain has improved. No CP, SOB, n/v/d/c , fevers/chills. She does endorse history of chronic constipation with a hard BM every 3-4 days. She also has a history of diverticulosis. She described her pain as a burning sensation starting in the suprapubic region, spreading to the LLQ, and then up to the chest. This pain has not recurred since admission. - Objective MAR Reviewed: Yes Vital Signs & Weight: Vital Signs (12 hours) Temp Pulse Resp BP BP Pulse Ox 04/15/19 03:20 97.7 F 62 16 121/60 96 04/14/19 22:59 97.8 F 69 16 133/60 96 04/14/19 22:26 96 04/14/19 22:24 98.7 F 71 18 146/67 H 96 04/14/19 19:34 97.9 F 70 16 140/75 98 Weight Weight 76 kg I&O: 04/13/19 04/14/19 04/15/19 06:59 06:59 06:59 Intake Total 1440 Balance 1440 Result Diagrams: 04/15/19 06:20 04/15/19 06:19 EKG Reviewed by me: Yes (EKst deg heart block. Tele: episodes of 2nd degree type I block) Phys Exam - Physical Examination Constitutional: NAD HEENT: moist MMs Respiratory: no wheezing, no rales, no rhonchi, clear to auscultation bilateral Cardiovascular: RRR, no significant murmur, no rub Gastrointestinal: soft, no distention, positive bowel sounds TTP over LLQ and supraprebulic region. No rebound or guarding. Musculoskeletal: no edema, pulses present Psychiatric: normal affect Dx/Plan (1) Atypical chest pain Code(s): R07.89 - OTHER CHEST PAIN Status: Acute (2) Abdominal pain Code(s): R10.9 - UNSPECIFIED ABDOMINAL PAIN Status: Acute Qualifiers: Abdominal location: lower abdomen, unspecified Qualified Code(s): R10.30 - Lower abdominal pain, unspecified (3) DMII (diabetes mellitus, type 2) Status: Chronic Qualifiers: Diabetes mellitus superintendent terminal insulin use: without long-term use (4) HLD (hyperlipidemia) Code(s): E78.5 - HYPERLIPIDEMIA, UNSPECIFIED Status: Chronic (5) HTN (hypertension) Code(s): I10 - ESSENTIAL (PRIMARY) HYPERTENSION Status: Chronic Qualifiers: Hypertension type: essential hypertension Qualified Code(s): I10 - Essential (primary) hypertension - Plan Plan: 78yo F with PMH of DMII, HTN, HLD, Diverticulosis, and 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 1. Abdominal Pain 2/2 suspected Diverticulitis - CT negative for diverticulitis but lactic acid initially elevated and pt having pain on phys exam in LLQ. Possible source. - UA clean, SG 1.040. Continue MIVF. - LA 3.0 -> 1.1. WBC 7.9. Repeat CBC this AM. - On zosyn, Will transition to PO Augmentin x7d course 2. Atypical Chest Pain - Trops negative x3. Episodes of 2nd degree type I block overnight. Asx. - Stress test this AM. - On statin and ASA. Nitro PRN for pain - BB held for stress this morning. 3. Chronic Constipation - could contribute to #1. Will add Miralax daily. 4. DMII - Mild SSI, accuchecks ACHS - Holding metformin, seeing if causing GI side effects 5. HTN - Holding propranolol for stress this AM 6. HLD - continue home atorva 7. Depression - continue home effexor 8. Hypothyroidism - continue home levo DVT ppx- Lovenox GERD ppx- Tums Diet: NPO for stress, HH after Code: Full Dispo: Pending clinical improvement and stress test this morning. Anticipate discharge within 48 hours of hospitalization.
[2019-04-15 06:29] LABS: #Basophils 0.1 thou/uL (0.0-0.2); #Eosinphils 0.1 thou/uL (0.0-0.7); #Lymphocytes 2.3 thou/uL (1.20-3.40); #Monocytes 0.5 thou/uL (0.11-0.59); #Neutrophils 4.7 thou/uL (1.40-6.50); %Eosinophils 1.6 % (0.0-10.0); %Monocytes 5.9 % (0.0-10.0); %Neutrophils 61.5 % (42.0-75.0); Mean Corpuscular HGB CONC 34.1 g/dL (32.0-36.0); Mean Corpuscular Hemoglobin 30.1 pg (27.0-31.0); Mean Corpuscular Volume 88.2 fL (78.0-98.0); Mean Platelet Volume 6.7 fL (7.4-10.4); Platelet Count 251 thou/uL (130-400); RBC Distribution Width 11.8 % (11.5-14.5); Red Blood Cell (RBC) Count 3.65 mill/uL (4.20-5.40); White Blood Cell (WBC) Count 7.6 thou/uL (4.8-10.8)
[2019-04-15 06:52] LABS: ALT (SGPT) Less than 7 U/L (8-55); AST (SGOT) 12 U/L (5-34); Albumin 3.2 g/dL (3.4-4.8); Alkaline Phosphatase 62 U/L (40-150); Anion Gap 8 mmol/L (10-20); BUN (Urea Nitrogen) 7 mg/dL (9.8-20.1); Bilirubin, Total 0.7 mg/dL (0.2-1.2); Calc. Creatinine Clearance 66 mL/min (70-130); Carbon Dioxide 30 mmol/L (23-31); Chloride 100 mmol/L (98-107); Estimated GFR-MDRD 68; Globulin 2.5 g/dL (2.4-3.5); Glucose 108 mg/dL (83-110); Potassium 3.4 mmol/L (3.5-5.1); Protein, Total 5.7 g/dL (6.0-8.3); Sodium 135 mmol/L (136-145)
[2019-04-15] MEDS ORDERED: Venlafaxine HCl XR 75 MG CAP PO SCH (09:00)
[2019-04-15] MEDS ORDERED: Aspirin 81 mg Enteric Coated Tablet PO SCH (09:00)
[2019-04-15] MEDS ORDERED: Calcium Carbonate + Vit D 1 TAB PO SCH (09:00)
[2019-04-15] MEDS ORDERED: Multivitamin W/ Minerals 1 TAB PO SCH (09:00)
[2019-04-15] MEDS ORDERED: Enoxaparin Sodium 40 MG/0.4 ML SYRINGE SC SCH (09:00)
[2019-04-15] MEDS ORDERED: ALENDRONATE SODIUM 5 MG PO SCH (09:00)
--- NOTE | 2019-04-15 11:58 | PRG ---
DATE OF SERVICE: 04/15/2019 Ms. Sanchez is a pleasant 78-year-old lady, who was admitted with some atypical chest pain. So far her troponins have trended negative at less than 0.01. She is currently chest pain free. She is also currently about to undergo a formal surgical stress test to further workup her atypical chest pain. Decisions will be made afterwards based on these results. In the event, clinically she is stable in no distress. Job ID: [id number]
--- NOTE | 2019-04-15 12:14 | NM ---
EXAM: Nuclear medicine cardiac SPECT with EF and wall motion: HISTORY: Chest pain, history of cardiac catheter, hypertension, diabetes mellitus, dyslipidemia Protocol: Exam was performed using Lexiscan protocol. The patient is injected with32.3 millicuries of technetium 99m sestamibi intravenously for stress ankita ges. The patient is injected with10.0 millicuries of technetium 99 sestamibi intravenously for resting ankita ges. Multiple SPECT images are performed in the short axis, vertical long axis, and horizontal long axis. FINDINGS: No scan evidence for infarct or ischemia. TID:1.0 LHR:0.52 EDV:74 mL EF:82% Wall motion:Within normal limits IMPRESSION: Unremarkable cardiac SPECT with EF and wall motion. No scan evidence for infarct or ischemia.
[2019-04-15 12:15] VITALS: BP 143/67; TEMP 97.7
--- NOTE | 2019-04-15 15:05 | DIS ---
DATE OF ADMISSION: 04/14/2019 DATE OF DISCHARGE: 04/15/2019 ADMITTING ATTENDING: Sander Steven MD. DISCHARGE ATTENDING: Sander Steven MD CONSULTS: None. PROCEDURES: 1. Chest x-ray-there are no acute pulmonary findings. 2. Abdominal pelvis CT-chronic diverticulosis without evidence of diverticulitis. 3. Nuclear medicine stress test-unremarkable EF and wall motion. No evidence for infarct or ischemia. PRIMARY DIAGNOSES: 1. Abdominal pain, likely due to diverticulitis. 2. Atypical chest pain. SECONDARY DIAGNOSES: 1. Chronic constipation. 2. Type 2 diabetes. 3. Hypertension. 4. Hyperlipidemia. 5. Depression. 6. Hypothyroidism. DISCHARGE MEDICATIONS: 1. MiraLAX 17 g p.o. daily. 2. Augmentin 875 mg p.o. q.12 hours x7 days. 3. Diovan 80/12.5 half tablet p.o. daily. 4. Pristiq 50 mg p.o. as directed. 5. Metformin 500 mg ER two tabs p.o. b.i.d. 6. Multivitamin one tablet p.o. daily. 7. Vitamin D and calcium tablets 1200 mg p.o. daily. 8. Levothyroxine 100 mcg 1/2 tablet p.o. daily. 9. Fosamax 5 mg p.o. daily. 10. Aspirin 81 mg p.o. daily. 11. Propranolol 40 mg p.o. b.i.d. 12. Atorvastatin 40 mg p.o. daily. DISCONTINUED MEDICATIONS: None. HISTORY OF PRESENT ILLNESS AND HOSPITAL COURSE: The patient is an 78-year-old female with 1-day history of abdominal/chest pain. The patient reported the pain as crampy in nature and started in her suprapubic region, described as a heat that then spread to her left lower quadrant, then progressively up her abdomen and into her chest. She said the episodes last approximately 10 minutes and reports some mild shortness of breath. She does report having chills,but no fever. The patient has an extensive abdominal surgical history including hysterectomy, appendectomy, tubal ligation, cholecystectomy, and colon resection. The patient also has a known history of diverticulosis. She does report one episode of vomiting when she presented to the ED, but did not have any return of her symptoms. She was then admitted to the floor for further evaluation and management. Once onto the floor, the patient did well and did not have any return of her symptoms. An initial urinalysis was unremarkable and urine culture was collected and final results showed mixed skin nicholas. Her initial lactic acid was elevated at 3.0. This did trend down to 1.1. On physical exam, she did have a left lower quadrant tenderness to palpation and thus diverticulitis was suspected. Due to the atypical presentation of the pain, troponins were trended and negative x3, and imaging was obtained as above in the emergency department. She was placed on telemetry overnight did have a few episodes of going into second degree heart block for a few beats, but then would go back into normal sinus with her chronic first degree block. It was decided that due to the patient's significant risk factors as well as her atypical presentation, the stress test would be obtained. On the day of discharge, the stress test was obtained and read as unremarkable with no areas of infarct or ischemia. Her initial propranolol, metformin, home medications were held prior to the stress test, but were resumed upon discharge. All of her other chronic medical conditions were treated with her home medications. At the time of discharge, the patient was doing well. She denied any return of symptoms and was eager to be discharged home. Results were discussed with the patient and she voiced understanding. The discharge plan was then discussed with the patient to follow up with her primary care physician within one week and to finish off a course of Augmentin for the suspected diverticulitis. The patient voiced agreement and understanding of the discharge plan and was eager to go home. DISPOSITION: Stable. DISCHARGE INSTRUCTIONS: 1. Location: Home. 2. Diet: Diabetic. 3. Activity: As tolerated. 4. Followup: The patient to followup with primary care physician within one week of discharge. Job ID: [id number] [facility]
[2019-04-15] MEDS ORDERED: Amoxicillin/Potassium Clav 875 MG TAB PO SCH (21:00)
[2019-04-16] MEDS ORDERED: Polyethylene Glycol 3350 17 GM Packet PO SCH (09:00)
== END 2019-04-15 16:14 | disposition home or self-care (01) | DRG 392 ==
LOC: ERS 11:47 → 2SW 17:41 → OBSVTOIN 17:41 → 2NO 20:45
PROVIDERS: ADMIT Family Medicine; ATTEND Family Medicine
DX: K57.32 Diverticulitis of large intestine without perforation or abscess without bleeding (principal); E87.1 Hypo-osmolality and hyponatremia; E87.2 Acidosis; E11.9 Type 2 diabetes mellitus without complications; F32.9 Major depressive disorder, single episode, unspecified; Z77.22 Contact with and (suspected) exposure to environmental tobacco smoke (acute) (chronic); I10 Essential (primary) hypertension; E03.9 Hypothyroidism, unspecified; R07.89 Other chest pain; E78.5 Hyperlipidemia, unspecified; Z98.51 Tubal ligation status; Z90.49 Acquired absence of other specified parts of digestive tract; Z79.82 Long term (current) use of aspirin; Z79.84 Long term (current) use of oral hypoglycemic drugs; Z79.899 Other long term (current) drug therapy
CPT/HCPCS: 36415; 36416; 71045; 74177; 78452; 80053; 81003; 83605; 84484; 85025; 87086; 93005; 93017; 96360; 96361; A9500; J1650; J2543; J3490; Q9966

== ENCOUNTER 2019-07-07 10:27 | Emergency (ER) | payer MEDICARE, BC ==
[2019-07-07 10:46] LABS: #Basophils 0.1 thou/uL (0.0-0.2); #Eosinphils 0.2 thou/uL (0.0-0.7); #Lymphocytes 1.7 thou/uL (1.20-3.40); #Monocytes 0.5 thou/uL (0.11-0.59); #Neutrophils 4.8 thou/uL (1.40-6.50); %Basophils 1.1 % (0.0-1.0); %Eosinophils 2.3 % (0.0-10.0); %Lymphocytes 23.7 % (21.0-51.0); %Monocytes 6.5 % (0.0-10.0); %Neutrophils 66.4 % (42.0-75.0); Hemoglobin 12.1 g/dL (12.0-16.0); Mean Corpuscular HGB CONC 32.8 g/dL (32.0-36.0); Mean Corpuscular Hemoglobin 29.8 pg (27.0-31.0); Mean Corpuscular Volume 90.8 fL (78.0-98.0); Mean Platelet Volume 6.8 fL (7.4-10.4); Platelet Count 307 thou/uL (130-400); RBC Distribution Width 11.4 % (11.5-14.5); Red Blood Cell (RBC) Count 4.06 mill/uL (4.20-5.40); White Blood Cell (WBC) Count 7.3 thou/uL (4.8-10.8)
--- NOTE | 2019-07-07 10:48 | RAD ---
Exam: Chest one view HISTORY:Chest pain Comparison: 04/14/2019 FINDINGS: Cardiac silhouette: Normal Aorta: Atherosclerosis of the aorta. Pulmonary vessels: Normal Costophrenic angles: Clear LUNGS: No masses or consolidation. Pneumothorax: None Osseous abnormalities: None IMPRESSION: No acute cardiopulmonary process. Atherosclerosis.
[2019-07-07 11:13] LABS: ALT (SGPT) 11 U/L (8-55); AST (SGOT) 14 U/L (5-34); Alkaline Phosphatase 75 U/L (40-110); Anion Gap 11 mmol/L (10-20); BUN (Urea Nitrogen) 12 mg/dL (9.8-20.1); Bilirubin, Total 0.7 mg/dL (0.2-1.2); CK (CPK) 53 U/L (29-168); Calc. Creatinine Clearance 0 mL/min (70-130); Calcium 9.3 mg/dL (7.8-10.44); Carbon Dioxide 31 mmol/L (23-31); Chloride 94 mmol/L (98-107); Estimated GFR-MDRD 66; Globulin 2.9 g/dL (2.4-3.5); Glucose 128 mg/dL (83-110); Lipase 29 U/L (8-78); Potassium 3.8 mmol/L (3.5-5.1); Protein, Total 6.9 g/dL (6.0-8.3); Sodium 132 mmol/L (136-145)
[2019-07-07 11:46] LABS: Bilirubin Negative (Negative); Blood, Urine Negative (Negative); Clarity Clear (Clear); Glucose, Urine (Dipstick) Normal (Negative); Leukocyte 250 Leu/uL (Negative); Nitrite Negative (Negative); Protein, Urine (Dipstick) Negative (Neg-Trace); RBC/HPF 0-3 HPF (0-3); Squamous Epithelial 0-3 HPF (0-3); Urobilinogen Normal mg/dL (Less than 2)
[2019-07-07 11:48] LABS: Bacteria/HPF 1+ HPF (None Seen)
== END 2019-07-07 11:58 | disposition home or self-care (01) ==
LOC: ERS 10:27
DX: R07.9 Chest pain, unspecified (principal); R42 Dizziness and giddiness; F32.9 Major depressive disorder, single episode, unspecified; E11.9 Type 2 diabetes mellitus without complications; E78.5 Hyperlipidemia, unspecified; Z79.84 Long term (current) use of oral hypoglycemic drugs; Z79.899 Other long term (current) drug therapy
CPT/HCPCS: 36415; 71045; 80053; 81003; 81015; 82550; 83690; 84484; 85025; 93005

== ENCOUNTER 2019-10-12 14:01 | Outpatient (CLI) | payer MEDICARE, BC ==
--- NOTE | 2019-10-12 15:04 | MMO ---
Bilateral MAMMO Bilat Screen [facility]. CLINICAL HISTORY: Patient is 79 years old and is seen for screening. The patient has no family history of breast cancer. The patient has no personal history of cancer. VIEWS: The views performed were: bilateral craniocaudal with tomosynthesis; bilateral mediolateral oblique with tomosynthesis; and left mediolateral oblique. FILMS COMPARED: The present examination has been compared to prior imaging studies performed at [facility] on 11/09/2014, 01/24/2016, 04/24/2016 and 03/04/2017. This study has been interpreted with the assistance of computer-aided detection. MAMMOGRAM FINDINGS: There are scattered fibroglandular densities. There are no suspicious masses, suspicious calcifications, or new areas of architectural distortion. IMPRESSION: THERE IS NO MAMMOGRAPHIC EVIDENCE OF MALIGNANCY. A ROUTINE FOLLOW-UP MAMMOGRAM IN 1 YEAR IS RECOMMENDED. THE RESULTS OF THIS EXAM WERE SENT TO THE PATIENT. ACR BI-RADS Category 1 - Negative MAMMOGRAPHY NOTE: 1. A negative mammogram report should not delay a biopsy if a dominant of clinically suspicious mass is present. 2. Approximately 10% to 15% of breast cancers are not detected by mammography. 3. Adenosis and dense breasts may obscure an underlying neoplasm. Reported by: DONN LYNCH MD Electonically Signed: [id number]
== END 2019-10-12 14:02 | disposition home or self-care (01) ==
LOC: BICMAMMO 14:01
PROVIDERS: ATTEND Student in an Organized Health Care Education/Training Program
DX: Z12.31 Encounter for screening mammogram for malignant neoplasm of breast (principal)
CPT/HCPCS: 77063; 77067

== ENCOUNTER 2020-10-04 15:08 | Observation (INO) | payer MEDICARE, BC ==
[2020-10-04 15:32] LABS: #Basophils 0.1 thou/uL (0.0-0.2); #Eosinphils 0.2 thou/uL (0.0-0.7); #Lymphocytes 2.4 thou/uL (1.20-3.40); #Monocytes 0.7 thou/uL (0.11-0.59); #Neutrophils 4.4 thou/uL (1.40-6.50); %Basophils 1.1 % (0.0-1.0); %Eosinophils 2.4 % (0.0-10.0); %Lymphocytes 31.7 % (21.0-51.0); %Monocytes 8.6 % (0.0-10.0); %Neutrophils 56.3 % (42.0-75.0); Hemoglobin 12.1 g/dL (12.0-16.0); Mean Corpuscular HGB CONC 33.7 g/dL (32.0-36.0); Mean Corpuscular Hemoglobin 30.5 pg (27.0-31.0); Mean Corpuscular Volume 90.5 fL (78.0-98.0); Mean Platelet Volume 6.8 fL (7.4-10.4); Platelet Count 287 thou/uL (130-400); RBC Distribution Width 11.2 % (11.5-14.5); Red Blood Cell (RBC) Count 3.98 mill/uL (4.20-5.40); White Blood Cell (WBC) Count 7.7 thou/uL (4.8-10.8)
--- NOTE | 2020-10-04 15:35 | RAD ---
PORTABLE CHEST: 10/04/20 HISTORY: Chest pain. COMPARISON: 07/07/19. Lungs appear clear. No infiltrate or vascular congestion. Heart and mediastinum unremarkable. IMPRESSION: No acute findings. POS: OFF
[2020-10-04 15:52] LABS: ALT (SGPT) 12 U/L (8-55); AST (SGOT) 17 U/L (5-34); Albumin 4.1 g/dL (3.4-4.8); Alkaline Phosphatase 88 U/L (40-110); Anion Gap 13 mmol/L (10-20); BUN (Urea Nitrogen) 9 mg/dL (9.8-20.1); Bilirubin, Total 0.7 mg/dL (0.2-1.2); Calc. Creatinine Clearance 0 mL/min (70-130); Calcium 9.3 mg/dL (7.8-10.44); Carbon Dioxide 32 mmol/L (23-31); Chloride 90 mmol/L (98-107); Globulin 3.1 g/dL (2.4-3.5); Glucose 120 mg/dL (83-110); Potassium 3.3 mmol/L (3.5-5.1); Protein, Total 7.2 g/dL (6.0-8.3); Sodium 132 mmol/L (136-145)
[2020-10-04] MEDS ORDERED: Aspirin Chewable 81 MG TAB ONE (16:55)
[2020-10-04] MEDS ORDERED: Potassium Chloride 20 MEQ TAB ONE (16:55)
--- NOTE | 2020-10-04 17:27 | PDOC.FPRHP ---
- History of Present Illness Chief Complaint: Chest pain History of Present Illness: 80yo F with h/o HTN, HLD, DMII who presents with atypical chest pain. Patient states she had a fall this morning onto her hands and feet while walking the dog. Did not have any pain at that time. Then, prior to dinner, had a feeling of "emptiness" substernal area with associated diaphoresis and nausea and thus presented to ED. No radiation of the feeling, no SOB, cough, congestion, vomiting, abd pain, recent illness. Does have prior perineal pain from a rectocele but no acute changes. Sxs have resolved in ED with time. Also has his tory of GERD but states this feeling is unlike anything else she has felt before. Presented for atypical chest pain in 04/2019, pain was different at that time, stress was negative at that time. No cardiac follow up as outpt. ED Course: ASA, KCl, resolution of sxs with time - Allergies/Adverse Reactions Allergies Allergy/AdvReac Type Severity Reaction Status Date / Time No Known Allergies Allergy Verified 12/07/19 07:32 - Home Medications Medication Instructions Recorded Confirmed Type Multivitamin With Minerals 1 tablet PO DAILY 04/10/14 10/04/20 History [Multiple Vitamin] metFORMIN HCl [metFORMIN HCl ER] 2 tab PO DAILY 04/10/14 10/04/20 History Levothyroxine Sodium 50 mcg PO DAILY 05/24/14 10/04/20 History Propranolol [Inderal] 40 mg PO DAILY 04/14/19 10/04/20 History Venlafaxine [Effexor XR] 37.5 mg PO DAILY 04/15/19 10/04/20 History Amoxicillin [Amoxil] 500 mg PO Q8HR 10/04/20 10/04/20 History Aspirin [Aspirin EC] 81 mg PO Q2DAYS 10/04/20 10/04/20 History Glucos Sul 2Kcl/MSM/Chond/C/Mn 1 each PO DAILY 10/04/20 10/04/20 History [Glucosamine Chondroitin Cap] Ibuprofen [Motrin IB] 200 mg PO Q6HR PRN 10/04/20 10/04/20 History Olmesartan Medoxomil [Benicar] 40 mg PO DAILY 10/04/20 10/04/20 History Rosuvastatin [Crestor] 20 mg PO DAILY 10/04/20 10/04/20 History - History PMHx: DMII, Depression, HTN, Hypothyroidism, HLD, Diverticulosis PSHx: Tubal Ligation (1974), Hyterectomy and Appendectomy (1979), Heart Cath(), Ear Surgery for Cyst (), Cholecystectomy, Cystocele and Rectocele correction (2008), Left Knee replacement (2003), Lens Implant (2003,2011), Rupture colon w/ Resection w/ rectocele and cystocele again corrected (2015) FHx: Noncontributory Social: Second hand smoke from , Denies alcohol or illicit drug use or personal tob use. - Review of Systems General: denies: fever/chills, weight/appetite/sleep changes, night sweats, fatigue Eyes: denies: vision changes ENT: denies: nasal congestion, rhinorrhea Respiratory: denies: cough, congestion, shortness of breath Cardiovascular: reports: chest pain. denies: palpitation, edema Gastrointestinal: reports: nausea. denies: vomiting, diarrhea, constipation, abdominal pain Genitourinary: reports: other (rectocele, perineal pain). denies: incontinence, dysuria Skin: denies: rashes Neurological: denies: numbness, syncope Psychological: reports: depression - Vital signs BP: 125/67 HR: 64 RR: 18 Tmax: 97.7 Pox: 100% on RA Wt: 84kg - Physical Exam Constitutional: NAD, awake, alert and oriented, well developed HEENT: EOMI, conjunctiva clear, MMM Neck: supple, trachea midline Chest: no-tender to palpation Heart: RRR, normal S1/S2, no murmurs/rubs/gallops, pulses present, no edema Lungs: CTAB, no respiratory distress, good air movement, no rales/rhonchi, no wheezing Abdomen: soft, non-tender, bowel sounds present Musculoskeletal: normal structure, normal tone Neurological: no focal deficit Skin: no rash/lesions Psychiatric: normal mood and affect, good judgment and insight FMR H&P: Results - Labs Result Diagrams: 10/04/20 15:22 10/05/20 03:43 Lab results: WBC 7.7 thou/uL (4.8-10.8) 10/04/20 15:22 Hgb 12.1 g/dL (12.0-16.0) 10/04/20 15:22 Hct 36.0 % (36.0-47.0) 10/04/20 15:22 MCV 90.5 fL (78.0-98.0) 10/04/20 15:22 Plt Count 287 thou/uL (130-400) 10/04/20 15:22 Neutrophils % 56.3 % (42.0-75.0) 10/04/20 15:22 Sodium 132 mmol/L (136-145) L 10/04/20 15:22 Potassium 3.3 mmol/L (3.5-5.1) L 10/04/20 15:22 Chloride 90 mmol/L (98-107) L 10/04/20 15:22 Carbon Dioxide 32 mmol/L (23-31) H 10/04/20 15:22 BUN 9 mg/dL (9.8-20.1) L 10/04/20 15:22 Creatinine 0.94 mg/dL (0.6-1.1) 10/04/20 15:22 Glucose 120 mg/dL (83-110) H 10/04/20 15:22 Calcium 9.3 mg/dL (7.8-10.44) 10/04/20 15:22 Total Bilirubin 0.7 mg/dL (0.2-1.2) 10/04/20 15:22 AST 17 U/L (5-34) 10/04/20 15:22 ALT 12 U/L (8-55) 10/04/20 15:22 Alkaline Phosphatase 88 U/L (40-110) 10/04/20 15:22 B-Natriuretic Peptide 41.1 pg/mL (0-100) 10/04/20 15:22 Serum Total Protein 7.2 g/dL (6.0-8.3) 10/04/20 15:22 Albumin 4.1 g/dL (3.4-4.8) 10/04/20 15:22 - EKG Interpretation EKst degree AV block, NE 496. No acute ST or T wave changes. sinus. - Radiology Interpretation Chest x-ray Status: image reviewed by me, report reviewed by me (no acute process) FMR H&P: A/P - Problem List (1) Atypical chest pain Status: Acute Code(s): R07.89 - OTHER CHEST PAIN (2) DMII (diabetes mellitus, type 2) Status: Chronic Qualifiers: Diabetes mellitus buttermaker helper insulin use: without senior care use (3) HLD (hyperlipidemia) Status: Chronic Code(s): E78.5 - HYPERLIPIDEMIA, UNSPECIFIED (4) HTN (hypertension) Status: Chronic Code(s): I10 - ESSENTIAL (PRIMARY) HYPERTENSION Qualifiers: Hypertension type: essential hypertension Qualified Code(s): I10 - Essential (primary) hypertension - Plan 80yo F with h/o HTN, HLD, DMII who presents with atypical chest pain. #Atypical chest pain - "emptiness" feeling onset prior to admission with associated nausea and diaphoresis - history of GERD - Sxs resolved in ED - suspected GI etiology vs MSK - Trop <0.010, will trend - EKst degree AV block, no acute ST or T wave changes - CXR negative - Heart score 4 - Admit to tele obs, stress in AM - Risk stratification - GI cocktail #Hypokalemia - Replace, check mag, monitor #Rectocele - chronic for 1+ year, will need outpt follow up with Dr. Carmichael her surgeon #DMII - Home meds, hyperglycemic protocol #HTN - home meds, hold BB #HLD - home meds PCP: [facility] Code: DNR IVF: SL Diet: HH, NPO at MN VTE: Lovenox Disposition/LOS: Admit to tele obs for Atypical chest pain and NM stress in AM. FMR H&P: Upper Level - Plan Date/Time: 10/04/20 [id number] I, [], have evaluated this patient and agree with findings/plan as outlined by internal medicine veterinary technician resident. Pertinent changes/additions are listed here. Addendum - Attending - Attending Attestation Date/Time: 10/29/20 1616 I personally evaluated the patient and discussed the management with Dr. Camara on 10/04/20. I agree with the History, Examination, Assessment and Plan documented above without any addition or exceptions.
[2020-10-04] MEDS ORDERED: HumaLOG 300 UNITS/3 ML VIAL SC PRN ×2 (19:06)
[2020-10-04] MEDS ORDERED: Ondansetron PF 4 MG/2 ML Vial IVP PRN (19:06)
[2020-10-04] MEDS ORDERED: Ondansetron ODT 4 MG TAB PO PRN (19:06)
[2020-10-04] MEDS ORDERED: Calcium Carbonate 500 MG ChewTAB PO PRN (19:06)
[2020-10-04] MEDS ORDERED: Dextrose 50% Abboject 50 ML SYRINGE SLOW IVP PRN (19:06)
[2020-10-04] MEDS ORDERED: Dextrose 5% in Water 1,000 ML IV PRN (19:06)
[2020-10-04] MEDS ORDERED: Acetaminophen 325 MG TAB PO PRN (19:06)
[2020-10-04 19:08] LABS: Hemoglobin A1c 6.3 % (4.0-6.0)
[2020-10-04 19:19] LABS: Troponin I Less than 0.010 ng/mL (< 0.028)
[2020-10-04 19:25] VITALS: BMI 27.7
[2020-10-04] MEDS ORDERED: Preparation H Ointment 28 GM TUBE TOP PRN (20:04)
[2020-10-04] MEDS ORDERED: Rosuvastatin 10 MG TAB PO SCH (21:00)
[2020-10-04 22:24] LABS: Troponin I Less than 0.010 ng/mL (< 0.028)
[2020-10-05 04:31] LABS: Anion Gap 11 mmol/L (10-20); BUN (Urea Nitrogen) 8 mg/dL (9.8-20.1); Calc. Creatinine Clearance 69 mL/min (70-130); Calcium 9.2 mg/dL (7.8-10.44); Carbon Dioxide 30 mmol/L (23-31); Cardiac Risk 2.1 (Less than 4.5); Chloride 92 mmol/L (98-107); Cholesterol 111 mg/dl (< 200 Desired); Glucose 107 mg/dL (83-110); HDL Cholesterol 53 mg/dL (>60 Neg Risk); LDL Cholesterol, Calculated 40 mg/dL; Potassium 4.3 mmol/L (3.5-5.1); Sodium 129 mmol/L (136-145); Triglycerides 89 mg/dL (Less than 150)
[2020-10-05] MEDS ORDERED: Levothyroxine Sodium 50 MCG TAB PO SCH (06:00)
--- NOTE | 2020-10-05 06:25 | PDOC.FM ---
- Subjective Subjective: Doing well this morning, no acute events overnight. No return of CP-like sxs. Tolerated PO well. No concerns for this morning. Denies CP, SOB, fever/chills, n/v. - Objective MAR Reviewed: Yes Vital Signs & Weight: Vital Signs (12 hours) Temp Pulse Resp BP 10/05/20 03:46 97.8 F 62 12 123/60 Weight Weight 80.286 kg Result Diagrams: 10/04/20 15:22 10/05/20 03:43 EKG Reviewed by me: Yes (Tele: 1st degree AV block) Phys Exam - Physical Examination Constitutional: NAD (resting comfortably, good spirits, comfortable) HEENT: moist MMs Neck: supple Respiratory: no wheezing, no rales, no rhonchi, clear to auscultation bilateral Cardiovascular: RRR, no significant murmur, no rub Gastrointestinal: soft, non-tender, no distention, positive bowel sounds Musculoskeletal: no edema Neurological: moves all 4 limbs Psychiatric: normal affect, A&O x 3 Dx/Plan (1) Atypical chest pain Code(s): R07.89 - OTHER CHEST PAIN Status: Acute (2) DMII (diabetes mellitus, type 2) Status: Chronic Qualifiers: Diabetes mellitus alf insulin use: without longwall machine operator helper use (3) HLD (hyperlipidemia) Code(s): E78.5 - HYPERLIPIDEMIA, UNSPECIFIED Status: Chronic (4) HTN (hypertension) Code(s): I10 - ESSENTIAL (PRIMARY) HYPERTENSION Status: Chronic Qualifiers: Hypertension type: essential hypertension Qualified Code(s): I10 - Es sential (primary) hypertension - Plan Plan: 80yo F with h/o HTN, HLD, DMII who presents with atypical chest pain. #Atypical chest pain - "emptiness" feeling onset prior to admission with associated nausea and diaphoresis - history of GERD - Sxs resolved in ED and no recurrence - suspected GI etiology vs MSK - Trop <0.010 x3 - EKst degree AV block, no acute ST or T wave changes (AV block on EKG in 06/2019) - CXR negative - Heart score 4 - stress this AM, no acute events on tele overnight - Lipids at goal, TSH WNL, A1C pre-diabetic #Hypokalemia, resolved - Replaced, mag 1.6 #Rectocele - chronic for 1+ year, will need outpt follow up with Dr. Carmichael her surgeon #DMII - Home meds, hyperglycemic protocol #HTN - home meds, hold BB #HLD - home meds PCP: [facility] Code: DNR IVF: SL Diet: NPO VTE: Lovenox Disposition/LOS: Admitted to tele obs for Atypical chest pain. NM stress this AM. Anticipate LOS <48hrs.
[2020-10-05] MEDS ORDERED: metFORMIN 500 MG TAB PO SCH (08:00)
[2020-10-05] MEDS ORDERED: Aspirin 81 mg Enteric Coated Tablet PO SCH (09:00)
[2020-10-05] MEDS ORDERED: Venlafaxine XR 37.5 MG CAP PO SCH (09:00)
[2020-10-05] MEDS ORDERED: Enoxaparin Sodium 40 MG/0.4 ML SYRINGE SC SCH (09:00)
[2020-10-05] MEDS ORDERED: Multivit, Therapeutic 1 TAB PO SCH (09:00)
[2020-10-05] MEDS ORDERED: Losartan 25 MG TAB PO SCH (09:00)
[2020-10-05 11:13] VITALS: BP 148/71; TEMP 98.6
[2020-10-05] MEDS ORDERED: Regadenoson 0.4 MG/5 ML SYRINGE ONE (12:53)
--- NOTE | 2020-10-05 14:36 | NM ---
Exam: Nuclear medicine cardiac stress with EF and wall motion HISTORY: Typical chest pain TECHNIQUE: Patient was administered 9.7 mCi of technetium 99 sestamibi for rest imaging and 32.10 mCi of technetium 9M sestamibi for stress imaging. Cardiac gating is performed FINDINGS: Homogeneous distribution of the radiotracer. No reversibility or fixed defects. TID is 0.97 End-diastolic volume: 57 mL End-systolic volume: 7 mL Cardiac gating and wall motion: Normal. 89% ejection fraction IMPRESSION: 1. No reversibility or fixed defect. 2. 89% ejection fraction.
[2020-10-05 16:35] LABS: SARS-CoV-2 PCR NAA for Saliva Not Detected (NotDetected)
[2020-10-05] MEDS ORDERED: FLU VACC QS2020-21(65YR UP)/PF 240 MCG/0.7 ML SYRINGE IM ONE (21:00)
--- NOTE | 2020-10-06 10:41 | DIS ---
DATE OF ADMISSION: 10/04/2020 DATE OF DISCHARGE: 10/05/2020 RESIDENT: Nilay Camara MD ADMITTING ATTENDING: Matthew Finn MD DISCHARGE ATTENDING: Lela Bobby MD. CONSULTS: None. PROCEDURES: 1. Chest x-ray performed on 10/04/2020, demonstrating no acute findings. 2. Nuclear medicine stress test performed on 10/05/2020, demonstrating no reversibility or fixed defect. 89% ejection fraction. PRIMARY DIAGNOSIS: Atypical chest pain, resolved. SECONDARY DIAGNOSES: 1. Hypokalemia, resolved. 2. Rectocele. 3. Type 2 diabetes. 4. Hypertension. 5. Hyperlipidemia. DISCHARGE MEDICATIONS: 1. Metformin 500 mg two tablets p.o. daily extended release. 2. Multivitamin one tablet p.o. daily. 3. Levothyroxine 500 mcg p.o. daily. 4. Propranolol 40 mg p.o. daily. 5. Effexor XR 37.5 mg p.o. daily. 6. Crestor 20 mg p.o. daily. 7. Benicar 40 mg p.o. daily. 8. Aspirin 81 mg p.o. q.2 days. 9. Ibuprofen 200 mg p.o. q.6 hours p.r.n. HPI/HOSPITAL COURSE: The patient is an 80-year-old female with history of hypertension, hyperlipidemia, type 2 diabetes, who presented with atypical chest pain. She stated that earlier in the day, she had a "heaviness" feeling in her substernal area, associated with diaphoresis and nausea and thus presented to the ED. There was no radiation, feeling of shortness of breath, cough, congestion, vomiting, or abdominal pain. No recent illness. She states this feeling resolved with time. Of note, she presented for atypical chest pain in April 2019. She states that the pain at that time was different. At that time, she had a negative stress test. She also endorses a chronic rectocele, but she is following with Dr. Cade, has no acute changes from this. In the ED, she was given aspirin, potassium for her hypokalemia with resolution of her symptoms and was admitted to telemetry observation for atypical chest pain. The patient's EKG showed a first-degree AV block with no acute ST or T-wave changes. Per records review, this AV block is chronic in nature. Her troponins returned negative x3. The patient did not have any return of symptoms and no acute events on telemetry overnight. The patient was given a GI cocktail. The patient does have history of GERD. Her chest x-ray was negative. The patient was risk stratified with lipids at goal. TSH within normal limits. An A1c showing a value of 6.3. The following morning, the patient was taken for stress test that was negative for above. Findings were discussed with the patient with recommendations to follow with her primary care physician for management of her chronic medical conditions including her rectocele. The patient voiced good understanding of discharge plan and appropriate followup. All questions were answered. The patient was eager for discharge. DISPOSITION: Stable. DISCHARGE INSTRUCTIONS: 1. Location: Home. 2. Diet: Heart healthy. 3. Activity: As tolerated. 4. Followup: The patient is to follow up with her primary care physician within one week of discharge. Job ID: [id number] MTDD
--- NOTE | 2020-10-21 16:41 | EKG ---
Test Reason : Blood Pressure : / mmHG Vent. Rate : 063 BPM Atrial Rate : 063 BPM P-R Int : 496 ms QRS Dur : 082 ms QT Int : 428 ms P-R-T Axes : 056 -35 013 degrees QTc Int : 437 ms Sinus rhythm with 1st degree A-V block Left axis deviation Septal infarct , age undetermined Inferior infarct , age undetermined Abnormal ECG Confirmed by ZENOBIA FAYE, RODRICK Garcia ([id number]), business editor WAQAR WILLIS ([id number]) on 10/21/2020 4:41:12 PM Referred By: Confirmed By:RODRICK FREGOSO MD
--- NOTE | 2020-11-11 20:24 | STRESS ---
Acquisition Time: 2020-10-05 09:33:47 Total Exercise Time: 00:01:00 Test Indications: ATYPICAL CHEST PAIN Medications: Protocol: LEXISCAN Max HR: 089 BPM 64% of Pred: 138 BPM Max BP: 134/064 mmHG Max Work Load: 1.0 METS RESTING ECG: NORMAL SINUS RHYTHM AT [address] CHANGES AND 1ST DEGREE AV BLOCK SYMPTOMS: NONE APPROPRIATE BP RESPONSE FOR LEXISCAN ECTOPY: NONE ECG STRESS: NO SIGNIFICANT CHANGES INTERPRETATION: INDETERMINATE ECG/ AWAIT NUCLEAR IMAGES FOR DEFINITIVE DIAGNOSIS. Confirmed by ELVER RODRIGUEZ M.D. ([id number] on 11/11/2020 8:23:51 PM Referred By: MD Carly CASTELLANOS Confirmed By:ELVER RODRIGUEZ M.D.
== END 2020-10-05 16:40 | disposition home or self-care (01) ==
LOC: ERS 15:08 → 2NO 17:10
PROVIDERS: ADMIT Emergency Medicine; ATTEND Emergency Medicine
DX: R07.89 Other chest pain (principal); E87.6 Hypokalemia; N81.6 Rectocele; E11.9 Type 2 diabetes mellitus without complications; I10 Essential (primary) hypertension; E78.5 Hyperlipidemia, unspecified; F32.9 Major depressive disorder, single episode, unspecified; E03.9 Hypothyroidism, unspecified; Z66 Do not resuscitate; Z77.22 Contact with and (suspected) exposure to environmental tobacco smoke (acute) (chronic); Z79.2 Long term (current) use of antibiotics; Z79.82 Long term (current) use of aspirin; Z79.84 Long term (current) use of oral hypoglycemic drugs; Z79.899 Other long term (current) drug therapy; Z90.49 Acquired absence of other specified parts of digestive tract; Z20.822 Contact with and (suspected) exposure to COVID-19
CPT/HCPCS: 71045; 78452; 80048; 80061; 82962 ×2; 83036; 83735; 83880; 84484 ×2; 93005; 93017; 99285; A9500; G0378 ×3; U0003; U0005; 36415; 36416; 80053; 84443; 85025; 87635; J2785

== ENCOUNTER 2021-09-15 14:01 | Emergency (ER) | payer MEDICARE, BC ==
[2021-09-15 16:59] LABS: Bacteria/HPF None Seen HPF (None Seen); Bilirubin Negative (Negative); Blood, Urine Trace (Negative); Clarity Clear (Clear); Glucose, Urine (Dipstick) Normal (Negative); Ketone, Urine Negative (Negative); Leukocyte Negative Leu/uL (Negative); Nitrite Negative (Negative); Protein, Urine (Dipstick) Negative (Neg-Trace); Specific Gravity, Urine 1.011 (1.002-1.036); Squamous Epithelial 0-3 HPF (0-3); Urobilinogen Normal mg/dL (Less than 2); WBC/HPF 0-3 HPF (0-3); pH, Urine 6.5 (5.0-9.0)
[2021-09-16 12:11] LABS: SARS-CoV-2 PCR by NAA DETECTED (NotDetected)
== END 2021-09-15 17:46 | disposition home or self-care (01) ==
LOC: ERS 14:01
DX: U07.1 COVID-19 (principal); I10 Essential (primary) hypertension; E11.9 Type 2 diabetes mellitus without complications; E78.5 Hyperlipidemia, unspecified; E03.9 Hypothyroidism, unspecified; G43.909 Migraine, unspecified, not intractable, without status migrainosus; Z86.73 Personal history of transient ischemic attack (TIA), and cerebral infarction without residual deficits; Z79.82 Long term (current) use of aspirin; Z79.84 Long term (current) use of oral hypoglycemic drugs; Z79.899 Other long term (current) drug therapy
CPT/HCPCS: 71045; 87804 ×2; U0003; U0005; 81003; 81015

== ENCOUNTER 2021-11-10 12:28 | Inpatient (IN) | payer MEDICARE, BC ==
[2021-11-10 13:28] LABS: #Basophils 0.1 thou/uL (0.0-0.2); #Eosinphils 0.1 thou/uL (0.0-0.7); #Lymphocytes 1.6 thou/uL (1.20-3.40); #Monocytes 0.5 thou/uL (0.11-0.59); #Neutrophils 3.9 thou/uL (1.40-6.50); %Basophils 1.4 % (0.0-1.0); %Eosinophils 2.3 % (0.0-10.0); %Lymphocytes 25.3 % (21.0-51.0); %Monocytes 7.8 % (0.0-10.0); %Neutrophils 63.2 % (42.0-75.0); Hemoglobin 11.4 g/dL (12.0-16.0); Mean Corpuscular HGB CONC 34.4 g/dL (32.0-36.0); Mean Corpuscular Hemoglobin 32.2 pg (27.0-31.0); Mean Corpuscular Volume 93.6 fL (78.0-98.0); Mean Platelet Volume 6.5 fL (7.4-10.4); Platelet Count 292 thou/uL (130-400); RBC Distribution Width 11.7 % (11.5-14.5); Red Blood Cell (RBC) Count 3.55 mill/uL (4.20-5.40); White Blood Cell (WBC) Count 6.1 thou/uL (4.8-10.8)
[2021-11-10] MEDS ORDERED: Aspirin Chewable 81 MG TAB ONE (13:38)
[2021-11-10 13:56] LABS: ALT (SGPT) 10 U/L (8-55); AST (SGOT) 13 U/L (5-34); Albumin 3.6 g/dL (3.4-4.8); Alkaline Phosphatase 58 U/L (40-110); Anion Gap 12 mmol/L (10-20); BUN (Urea Nitrogen) 9 mg/dL (9.8-20.1); Bilirubin, Total 0.9 mg/dL (0.2-1.2); Calc. Creatinine Clearance 0 mL/min (70-130); Calcium 8.8 mg/dL (7.8-10.44); Carbon Dioxide 29 mmol/L (23-31); Chloride 88 mmol/L (98-107); Globulin 2.7 g/dL (2.4-3.5); Glucose 122 mg/dL (83-110); Potassium 3.4 mmol/L (3.5-5.1); Protein, Total 6.3 g/dL (5.8-8.1); Sodium 126 mmol/L (136-145)
[2021-11-10 14:30] LABS: Lipase 41 U/L (8-78)
[2021-11-10] MEDS ORDERED: Ondansetron PF 4 MG/2 ML Vial IVP PRN (15:48)
[2021-11-10] MEDS ORDERED: Ondansetron ODT 4 MG TAB PO PRN (15:48)
[2021-11-10] MEDS ORDERED: Acetaminophen 325 MG TAB PO PRN (15:48)
[2021-11-10] MEDS ORDERED: Potassium Chloride 20 MEQ TAB PO SCH (16:00)
[2021-11-10 17:08] LABS: Hemoglobin A1c 6.3 % (4.0-6.0)
[2021-11-10 17:23] LABS: Magnesium 1.5 mg/dL (1.6-2.6)
[2021-11-10 17:26] LABS: Troponin I Less than 0.010 ng/mL (< 0.028)
[2021-11-10 17:39] VITALS: BMI 59.9
[2021-11-10] MEDS: metFORMIN 500 MG TAB PO SCH (18:18)
[2021-11-10 19:35] LABS: Troponin I Less than 0.010 ng/mL (< 0.028)
[2021-11-11 05:14] LABS: #Basophils 0.1 thou/uL (0.0-0.2); #Eosinphils 0.2 thou/uL (0.0-0.7); #Monocytes 0.5 thou/uL (0.11-0.59); #Neutrophils 3.8 thou/uL (1.40-6.50); %Basophils 1.3 % (0.0-1.0); %Eosinophils 2.6 % (0.0-10.0); %Lymphocytes 30.7 % (21.0-51.0); %Monocytes 6.9 % (0.0-10.0); %Neutrophils 58.5 % (42.0-75.0); Hemoglobin 10.8 g/dL (12.0-16.0); Mean Corpuscular HGB CONC 33.5 g/dL (32.0-36.0); Mean Corpuscular Hemoglobin 30.8 pg (27.0-31.0); Mean Corpuscular Volume 91.8 fL (78.0-98.0); Mean Platelet Volume 6.4 fL (7.4-10.4); Platelet Count 291 thou/uL (130-400); RBC Distribution Width 11.5 % (11.5-14.5); Red Blood Cell (RBC) Count 3.49 mill/uL (4.20-5.40); White Blood Cell (WBC) Count 6.5 thou/uL (4.8-10.8)
[2021-11-11 05:32] LABS: Anion Gap 13 mmol/L (10-20); BUN (Urea Nitrogen) 8 mg/dL (9.8-20.1); Calc. Creatinine Clearance 160 mL/min (70-130); Calcium 8.8 mg/dL (7.8-10.44); Carbon Dioxide 26 mmol/L (23-31); Cardiac Risk 2.2 (Less than 4.5); Chloride 89 mmol/L (98-107); Cholesterol 108 mg/dl (< 200 Desired); Glucose 96 mg/dL (83-110); HDL Cholesterol 50 mg/dL (>60 Neg Risk); LDL Cholesterol, Calculated 45 mg/dL; Potassium 3.6 mmol/L (3.5-5.1); Sodium 124 mmol/L (136-145); Triglycerides 64 mg/dL (Less than 150)
[2021-11-11] MEDS: Levothyroxine Sodium 50 MCG TAB PO SCH (06:04)
[2021-11-11] MEDS: Multivitamin W/ Minerals 1 TAB PO SCH (08:49)
[2021-11-11] MEDS: Ezetimibe 10 MG TAB PO SCH (08:49)
[2021-11-11] MEDS: metFORMIN 500 MG TAB PO SCH ×2 (08:49→17:00)
[2021-11-11] MEDS: Rosuvastatin 20 MG TAB PO SCH (08:49)
[2021-11-11] MEDS ORDERED: Sodium Chloride 1 GM TAB PO SCH ×2 (09:45→15:00)
[2021-11-11] MEDS ORDERED: Magnesium 2 GM/50 ML(in water) 2 GM in Premix Bag 1 BAG IVPB SCH (09:45)
[2021-11-11] MEDS: Sodium Chloride 1 GM TAB PO SCH ×2 (15:26→21:38)
[2021-11-12 05:06] LABS: #Basophils 0.1 thou/uL (0.0-0.2); #Eosinphils 0.1 thou/uL (0.0-0.7); #Lymphocytes 2.1 thou/uL (1.20-3.40); #Monocytes 0.6 thou/uL (0.11-0.59); #Neutrophils 4.9 thou/uL (1.40-6.50); %Basophils 0.8 % (0.0-1.0); %Eosinophils 1.8 % (0.0-10.0); %Lymphocytes 26.8 % (21.0-51.0); %Monocytes 7.8 % (0.0-10.0); %Neutrophils 62.9 % (42.0-75.0); Hemoglobin 11.4 g/dL (12.0-16.0); Mean Corpuscular HGB CONC 33.5 g/dL (32.0-36.0); Mean Corpuscular Hemoglobin 30.9 pg (27.0-31.0); Mean Corpuscular Volume 92.2 fL (78.0-98.0); Mean Platelet Volume 6.4 fL (7.4-10.4); Platelet Count 299 thou/uL (130-400); RBC Distribution Width 11.5 % (11.5-14.5); White Blood Cell (WBC) Count 7.8 thou/uL (4.8-10.8)
[2021-11-12 05:27] LABS: Anion Gap 12 mmol/L (10-20); BUN (Urea Nitrogen) 9 mg/dL (9.8-20.1); Calc. Creatinine Clearance 63 mL/min (70-130); Calcium 8.8 mg/dL (7.8-10.44); Carbon Dioxide 29 mmol/L (23-31); Chloride 92 mmol/L (98-107); Glucose 116 mg/dL (83-110); Magnesium 1.8 mg/dL (1.6-2.6); Potassium 4.1 mmol/L (3.5-5.1); Sodium 129 mmol/L (136-145)
[2021-11-12] MEDS: Levothyroxine Sodium 50 MCG TAB PO SCH (06:21)
[2021-11-12] MEDS: Ezetimibe 10 MG TAB PO SCH (08:03)
[2021-11-12] MEDS: metFORMIN 500 MG TAB PO SCH (08:03)
[2021-11-12] MEDS: Multivitamin W/ Minerals 1 TAB PO SCH (08:03)
[2021-11-12] MEDS: Rosuvastatin 20 MG TAB PO SCH (08:03)
[2021-11-12 11:53] VITALS: BP 106/57; TEMP 98.3
== END 2021-11-12 14:20 | disposition home or self-care (01) | DRG 641 ==
LOC: ERS 12:28 → ERHOLD 14:21 → NEURO 16:46 → OBSVTOIN 11-11 14:50
PROVIDERS: ADMIT Student in an Organized Health Care Education/Training Program; ATTEND Student in an Organized Health Care Education/Training Program
DX: E87.1 Hypo-osmolality and hyponatremia (principal); I25.10 Atherosclerotic heart disease of native coronary artery without angina pectoris; E11.9 Type 2 diabetes mellitus without complications; I10 Essential (primary) hypertension; E78.5 Hyperlipidemia, unspecified; Z96.652 Presence of left artificial knee joint; F32.A Depression, unspecified; D50.9 Iron deficiency anemia, unspecified; G43.909 Migraine, unspecified, not intractable, without status migrainosus; E03.9 Hypothyroidism, unspecified; Z86.73 Personal history of transient ischemic attack (TIA), and cerebral infarction without residual deficits; Z90.49 Acquired absence of other specified parts of digestive tract; Z90.710 Acquired absence of both cervix and uterus; Z79.82 Long term (current) use of aspirin; Z79.899 Other long term (current) drug therapy
CPT/HCPCS: 36415; 36416; 70450; 70551; 71045; 80048; 80053; 80061; 83036; 83690; 83735; 83930; 83935; 84300; 84443; 84484; 85025; 93005; 93306; 94760; 96374; G0378; J2405; J3475

== ENCOUNTER 2021-12-27 13:59 | Outpatient (CLI) | payer MEDICARE, BC | END 2021-12-27 14:00 | disposition home or self-care (01) | LOC: TBSIIMAG 13:59 | PROVIDERS: ATTEND Physician Assistant Medical | DX: K62.89 Other specified diseases of anus and rectum (principal); K57.30 Diverticulosis of large intestine without perforation or abscess without bleeding | CPT/HCPCS: 72197 ==

== ENCOUNTER 2024-04-04 11:54 | Emergency (ER) | payer MEDICARE, BC ==
[2024-04-04 14:08] LABS: #Basophils 0.06 10x3/uL (0.0-0.2); %Basophils 0.5 % (0.0-1.0); %Eosinophils 2.2 % (0.0-10.0); %Lymphocytes 16.7 % (21.0-51.0); %Monocytes 5.7 % (0.0-10.0); %Neutrophils 74.7 % (42.0-75.0); Hematocrit 36.9 % (36.0-47.0); Hemoglobin 11.8 g/dL (12.0-16.0); Mean Corpuscular Hemoglobin 28.9 pg (27.0-31.0); Mean Corpuscular Volume 90.2 fL (78.0-98.0); Mean Platelet Volume 9.7 fL (7.4-10.4); Platelet Count 268 10x3/uL (130-400); RBC Distribution Width 12.5 % (11.5-14.5); Red Blood Cell (RBC) Count 4.09 mill/uL (4.20-5.40)
[2024-04-04 14:30] LABS: ALT (SGPT) 16 U/L (8-55); AST (SGOT) 20 U/L (5-34); Albumin 3.4 g/dL (3.4-4.8); Alkaline Phosphatase 81 U/L (40-110); Anion Gap 12 mmol/L (10-20); BUN (Urea Nitrogen) 10 mg/dL (9.8-20.1); Bilirubin, Total 0.7 mg/dL (0.2-1.2); Calc. Creatinine Clearance 0 mL/min (70-130); Calcium 9.1 mg/dL (7.8-10.44); Carbon Dioxide 27 mmol/L (23-31); Chloride 104 mmol/L (98-107); Estimated GFR 68; Globulin 2.9 g/dL (2.4-3.5); Glucose 131 mg/dL (83-110); Potassium 3.6 mmol/L (3.5-5.1); Protein, Total 6.3 g/dL (5.8-8.1); Sodium 139 mmol/L (136-145)
== END 2024-04-04 15:57 | disposition home or self-care (01) ==
LOC: ERS 11:54
DX: K11.5 Sialolithiasis (principal); I10 Essential (primary) hypertension
CPT/HCPCS: 36415; 80053; 85025; 99283

== ENCOUNTER 2024-07-19 15:40 | Emergency (ER) | payer MEDICARE, BC ==
[2024-07-19] MEDS ORDERED: Acetaminophen 500 MG TAB ONE (17:13)
== END 2024-07-19 18:26 | disposition home or self-care (01) ==
LOC: ERS 15:40
DX: R51.9 Headache, unspecified (principal); M17.11 Unilateral primary osteoarthritis, right knee; I10 Essential (primary) hypertension; E11.9 Type 2 diabetes mellitus without complications; F03.90 Unspecified dementia, unspecified severity, without behavioral disturbance, psychotic disturbance, mood disturbance, and anxiety; W10.1XXA Fall (on)(from) sidewalk curb, initial encounter; Y93.01 Activity, walking, marching and hiking
CPT/HCPCS: 70450; 70486

== ENCOUNTER 2024-09-06 12:06 | Emergency (ER) | payer MEDICARE, BC ==
[2024-09-06 13:04] LABS: #Basophils 0.06 10x3/uL (0.0-0.2); %Basophils 0.8 % (0.0-1.0); %Eosinophils 2.9 % (0.0-10.0); %Lymphocytes 26.6 % (21.0-51.0); %Monocytes 5.9 % (0.0-10.0); %Neutrophils 63.7 % (42.0-75.0); Hematocrit 37.4 % (36.0-47.0); Hemoglobin 12.2 g/dL (12.0-16.0); Mean Corpuscular HGB CONC 32.6 g/dL (32.0-36.0); Mean Corpuscular Hemoglobin 29.3 pg (27.0-31.0); Mean Corpuscular Volume 89.7 fL (78.0-98.0); Platelet Count 266 10x3/uL (130-400); RBC Distribution Width 12.2 % (11.5-14.5); Red Blood Cell (RBC) Count 4.17 mill/uL (4.20-5.40)
[2024-09-06] MEDS ORDERED: Morphine 4 MG/ML VIAL ONE (13:04)
[2024-09-06] MEDS ORDERED: Ondansetron PF 4 MG/2 ML Vial ONE (13:04)
[2024-09-06 13:20] LABS: ALT (SGPT) 16 U/L (8-55); AST (SGOT) 20 U/L (5-34); Albumin 3.5 g/dL (3.4-4.8); Alkaline Phosphatase 80 U/L (40-110); Anion Gap 12 mmol/L (10-20); BUN (Urea Nitrogen) 9 mg/dL (9.8-20.1); Bilirubin, Total 0.7 mg/dL (0.2-1.2); Calc. Creatinine Clearance 0 mL/min (70-130); Carbon Dioxide 28 mmol/L (23-31); Chloride 101 mmol/L (98-107); Estimated GFR 69; Globulin 3.1 g/dL (2.4-3.5); Glucose 202 mg/dL (83-110); Lipase 23 U/L (8-78); Potassium 3.9 mmol/L (3.5-5.1); Protein, Total 6.6 g/dL (5.8-8.1); Sodium 137 mmol/L (136-145)
[2024-09-06 13:41] LABS: Bacteria/HPF None Seen HPF (None Seen); Bilirubin Negative (Negative); Blood, Urine Negative (Negative); CAUTI Indications for Culture Pelvic or flank pain; Clarity Clear (Clear); Glucose, Urine (Dipstick) 50 mg/dL (Negative); Ketone, Urine Negative (Negative); Leukocyte Negative Leu/uL (Negative); Nitrite Negative (Negative); Protein, Urine (Dipstick) Negative (Neg-Trace); RBC/HPF 0-3 HPF (0-3); Specific Gravity, Urine 1.008 (1.002-1.036); Squamous Epithelial None Seen HPF (0-3); Urobilinogen Normal mg/dL (Less than 2); WBC/HPF 0-3 HPF (0-3); pH, Urine 6.5 (5.0-9.0)
[2024-09-06 13:42] LABS: Urine Culture Reflex No No
== END 2024-09-06 14:54 | disposition home or self-care (01) ==
LOC: ERS 12:06
DX: R10.32 Left lower quadrant pain (principal); I10 Essential (primary) hypertension; E11.9 Type 2 diabetes mellitus without complications; Z79.84 Long term (current) use of oral hypoglycemic drugs; Z79.899 Other long term (current) drug therapy
CPT/HCPCS: 74177; 80053; 81001; 83690; 85025; J2272; J2405; 96374; 96375

== ENCOUNTER 2024-10-23 17:12 | Emergency (ER) | payer BC, MEDICARE | END 2024-10-23 20:39 | disposition home or self-care (01) | LOC: ERS 17:12 | DX: J06.9 Acute upper respiratory infection, unspecified (principal); R05.9 Cough, unspecified; I10 Essential (primary) hypertension; E78.5 Hyperlipidemia, unspecified; E11.9 Type 2 diabetes mellitus without complications; Z79.84 Long term (current) use of oral hypoglycemic drugs; Z79.899 Other long term (current) drug therapy | CPT/HCPCS: 87081; 87428; 87430; 99283 ==

== ENCOUNTER 2025-07-28 13:55 | Outpatient (CLI) | payer MEDICARE | END 2025-07-28 13:56 | disposition home or self-care (01) | LOC: RAD 13:55 | PROVIDERS: ATTEND Family Medicine | DX: Z91.81 History of falling (principal); M43.16 Spondylolisthesis, lumbar region; M43.17 Spondylolisthesis, lumbosacral region; M47.816 Spondylosis without myelopathy or radiculopathy, lumbar region; M47.817 Spondylosis without myelopathy or radiculopathy, lumbosacral region; M41.9 Scoliosis, unspecified | CPT/HCPCS: 72100 ==